=== PATIENT | female | born 1945 | race Caucasian/White ===

== ENCOUNTER 2020-01-11 08:59 | Outpatient (CLI) | payer MEDICARE, SELFPAY ==
[2020-01-11 09:15] LABS: Basophils Absolute Auto 0.06 K/mm3 (0.00-0.10); Basophils Percent Auto 1.2 % (0.0-1.0); Eosinophils Absolute Auto 0.13 K/mm3 (0.02-0.50); Eosinophils Percent Auto 2.6 % (1.0-6.0); Hematocrit 45.2 % (35.0-42.0); Immature Granulocyte Absolute 0.01 K/mm3 (0.00-0.00); Immature Granulocyte Percent A 0.2 % (0.0-0.0); Lymphocytes Absolute Auto 1.75 K/mm3 (1.10-4.50); Mean Corpuscular HGB Conc 33.2 g/dL (32.0-36.0); Mean Corpuscular Hemoglobin 32.5 pg (27.0-31.0); Mean Platelet Volume 9.6 fl (9.2-11.8); Monocytes Absolute Auto 0.64 K/mm3 (0.10-0.90); Monocytes Percent Auto 12.8 % (2.0-11.0); Neutrophils Absolute Auto 2.4 K/mm3 (1.7-7.2); Neutrophils Percent Auto 48.2 % (50.0-70.0); Platelet Count Result 157 K/mm3 (150-420); Red Blood Count 4.61 M/mm3 (4.20-5.40); Red Cell Distribution Width 13.1 % (11.6-14.4)
[2020-01-11 09:22] LABS: Add Urine Microscopic? NO; Appearance Urine Clear (Clear); Bilirubin Urine Negative (Negative); Blood Urine Negative (Negative); Color Urine Yellow (Yellow); Glucose Urine UA Negative (Negative); Ketones Urine Negative (Negative); Leukocyte Esterase Ur Negative (Negative); Nitrate Urine Negative (Negative); Protein Urine Negative (Negative); Specific Grav Ur 1.015 (1.010-1.020); Urobilinogen Urine 0.2 mg/dL (0.2-1.0)
[2020-01-11 10:10] LABS: Alanine Aminotransferase 35 U/L (14-59); Albumin Level 3.7 g/dL (3.4-5.0); Alkaline Phosphatase 76 U/L (46-116); Anion Gap 13.4 mmol/L (7-16); Aspartate Amino Transferase 29 U/L (15-37); Bilirubin,Total 0.3 mg/dL (0.00-1.00); Blood Urea Nitrogen 17 mg/dL (7-18); Calcium 9.3 mg/dL (8.5-10.1); Carbon Dioxide 29 mmol/L (21-32); Chloride 106 mmol/L (98-108); Cholesterol 204 mg/dL (0-200); Estimated Glomerular Filt Rate 57; Glucose 94 mg/dL (70-99); HDL Direct 79 mg/dL (40-60); LDL Cholesterol Calculated 100 mg/dL (<130); Osmolality Calculated 299 mOsm/kg (285-295); Potassium 4.4 mmol/L (3.5-5.1); Sodium 144 mmol/L (136-145); Thyroid Stimulating Hormone 1.53 uIU/mL (0.36-3.74); Total Protein 6.9 g/dL (6.4-8.2); Triglycerides 127 mg/dL (0-150)
== END 2020-01-11 09:00 | disposition home or self-care (01) ==
LOC: CHSLAB 09:05
PROVIDERS: PCP Internal Medicine; Visit Provider Internal Medicine
DX: E03.9 Hypothyroidism, unspecified (principal); R53.83 Other fatigue; E78.5 Hyperlipidemia, unspecified
CPT/HCPCS: 36415; 80053; 80061; 81003; 84443; 85025

== ENCOUNTER 2020-03-16 10:41 | Outpatient (CLI) | payer MEDICARE, SELFPAY ==
--- NOTE | ~2020-03-16 | MM_ITS ---
EXAMINATION: MM screening leo BI w casandra HISTORY: Screening TECHNIQUE: Craniocaudal and mediolateral oblique 3-D tomosynthesis images were obtained and synthetic 2-D images were generated. CAD analysis was submitted and interpreted. COMPARISON: Comparison to multiple prior studies sequentially, with oldest reviewed study dated 05/26. BREAST PARENCHYMAL COMPOSITION: There are scattered areas of fibroglandular density. FINDINGS: There is a new focal mass in the lower outer quadrant of the right breast. The left breast is stable without evidence for malignancy. There are benign bilateral breast calcifications. IMPRESSION: 1. New 5-6 mm mass lower outer quadrant of the right breast. 2. Additional mammographic views and possible breast ultrasound are recommended. BI-RADS Category 0: Incomplete: Needs additional imaging evaluation. Reviewed, dictated and finalized at location A. IMPRESSION: 1. New 5-6 mm mass lower outer quadrant of the right breast. 2. Additional mammographic views and possible breast ultrasound are recommended . BI-RADS Category 0: Incomplete: Needs additional imaging evaluation.
== END 2020-03-16 10:42 | disposition home or self-care (01) ==
LOC: CHSIMG 10:43
PROVIDERS: PCP Internal Medicine; Visit Provider Internal Medicine
DX: Z12.31 Encounter for screening mammogram for malignant neoplasm of breast (principal)
CPT/HCPCS: 77063; 77067

== ENCOUNTER 2020-03-21 09:43 | Outpatient (CLI) | payer MEDICARE, SELFPAY ==
--- NOTE | ~2020-03-21 | MMUS_ITS ---
EXAMINATION: MM diagnostic leo RT w casandra, US breast RT complete HISTORY: New 5-6 non or mass reported in the lower outer quadrant of the right breast TECHNIQUE: Additional 3-D tomosynthesis images of the right breast were performed and synthetic 2-D i mages were generated. CAD analysis was submitted and interpreted. High resolution complete right bri[address] st ultrasound was performed. COMPARISON: 03/16/2020 bilateral digital screening mammogram FINDINGS: MAMMOGRAPHIC FINDINGS: There is a circumscribed 5 mm opacity in the mid to lower outer right breast. There is heterogeneously dense stroma which may obscure masses. Multiple benign-appearing calcifications are present. ULTRASOUND: There are scattered circumscribed sonolucent lesions measuring up to 4.1 x 4.9 x 4.4 mm (6:00 4 cm fr om nipple). No suspicious mass or shadowing is detected. IMPRESSION: 1. No mammographic evidence of malignancy 2. Routine mammographic screening is recommended BI-RADS Category 2: Benign finding(s). Reviewed, dictated and finalized at location A. IMPRESSION: 1. No mammographic evidence of malignancy 2. Routine mammographic screening is recommended BI-RADS Category 2: Benign finding(s).
== END 2020-03-21 09:44 | disposition home or self-care (01) ==
LOC: CHSIMG 09:45
PROVIDERS: PCP Internal Medicine; Visit Provider Internal Medicine
DX: R92.8 Other abnormal and inconclusive findings on diagnostic imaging of breast (principal)
CPT/HCPCS: 76641; 77061; 77065; G0279

== ENCOUNTER 2020-12-01 12:01 | Outpatient (CLI) | payer MEDICARE, SELFPAY ==
--- NOTE | ~2020-12-01 | CT_ITS ---
EXAMINATION: CT brain wo con DATE: 12/01/2020 12:19 INDICATION: Memory loss. TECHNIQUE: Computed tomography (CT) of the head was performed without intravenous contrast. The mA wa s adjusted according to patient size. Iterative reconstruction technique was employed. The dose-lengt h product was 605.33 mGy-cm. COMPARISON: None FINDINGS: There are scattered areas of low attenuation in the cerebral white matter. There is no intr acranial hemorrhage, acute infarction, or abnormal intracranial mass lesion. The ventricles are sapphire l in size. There is mild mucosal thickening in the ethmoid sinuses. The mastoid air cells are normal. The orbits are normal. IMPRESSION: 1. Moderate nonspecific cerebral white matter disease, which likely represents chronic small vessel i schemic disease. Reviewed, dictated and finalized at location A. IMPRESSION: 1. Moderate nonspecific cerebral white matter disease, which likely represents chronic small vessel ischemic disease.
== END 2020-12-01 12:02 | disposition home or self-care (01) ==
LOC: CHSIMG 12:04
PROVIDERS: PCP Internal Medicine; Visit Provider Internal Medicine
DX: I63.9 Cerebral infarction, unspecified (principal)
CPT/HCPCS: 70450

== ENCOUNTER 2021-05-30 09:48 | Outpatient (RCR) | payer MEDICARE, SELFPAY ==
--- NOTE | 2021-05-30 12:44 | PTOPEVAL ---
Thank you for referring Prudence Watkins to [facility].? The patient is scheduled to be seen for therapy? ____x/week for ___ weeks. Please review, sign, date and return this plan of care ANTONIO. I agree with and certify that the following plan of care is medically necessary. Referring Physician Date Admitting Provider: Attending Provider: Watson Lopez MD Referring Provider: *PT Outpatient Evaluation Start: 05/30/21 09:49 Freq: Status: Active Protocol: Document 05/30/21 09:49 ACR (Rec: 05/30/21 11:00 ACR [id number]) Therapy Assessment Status Assessment Status Assessment Status Evaluation Evaluation Information Problem Diagnosis low back pain Onset 05/28/21 Subjective Information Patient states that she had Query Text:As Reported By Patient/ back surgery 2 years ago and Family everything was going well. A could weeks ago she woke up and her R leg felt like it would not move. She states it is in the front of the thigh and on the R lower back. She states that walking for a period of time, getting up from a chair, prolonged standing, and navigating steps are difficult for her. She states that she still does her exercises from her surgery. Patient states that she has had one fall in the past year where she fell to the R. Patient states that it is keeping her up at night. Prior Level of Function Activity Level (Last 3 Months) Occupation retired Hand Dominance Right Activity of Daily Living Ability Independent Indoor/Home Mobility Independent Community Mobility Independent Stairs Ability Independent Functional Cognition (Planning, Shopping Independent , Taking Medications) Cooking Yes Cleaning Yes Laundry Yes Shopping Yes Driving Yes Pain Assessment Timing of Pain Assessment Timing of Pain Assessment Assessment Pain Scale Pain Scale Used Numeric (1 - 10) Self Report Pain Assessment Right Thigh(s) Reported Pain Level 7 Greatest Pain Intensity 10 Right Lower Back Reported Pain Level 5 Greatest Pain Intensity
--- NOTE | 2021-06-13 11:11 | PTOPEVAL ---
Thank you for referring Prudence Watkins to [facility]. Please review, sign, date and return this plan of care ANTONIO. I agree with and certify that the following plan of care is medically necessary. Referring Physician Date Admitting Provider: Attending Provider: Watson Lopez MD Referring Provider: *PT Outpatient Evaluation Start: 05/30/21 09:49 Freq: Status: Active Protocol: Document 06/13/21 09:50 [email or web address] (Rec: 06/13/21 11:10 [email or web address]) Therapy Assessment Status Assessment Status Assessment Status Progress Evaluation Information Problem Diagnosis low back pain Onset 05/28/21 Subjective Information Pt. reports that her buttock Query Text:As Reported By Patient/ pain is better and less Family intense. She states that she still notices pain in the front of the right thigh and groin. she describes most pain with trying to lift the right thigh. Pain Assessment Timing of Pain Assessment Timing of Pain Assessment Pre-Treatment Pain Scale Pain Scale Used Numeric (1 - 10) Self Report Pain Assessment Right Thigh(s) Reported Pain Level 8 Right Lower Back Reported Pain Level 4 Pain Score Pain Score 8,4: Self Report Interventions Used Interventions Used By Clinicians Activity or ADL's,Exercise, Heat Cervical and Lumbar ROM Lumbar ROM Lumbar Flexion Active Ankle Query Text:Hands to: Lumbar Extension (0-40) 20 Query Text:Active in Degrees Lateral Rotation Right (0-45) 20 Query Text:Active in Degrees Lateral Rotation Left (0-45) 20 Query Text:Active in Degrees Lower Extremity Muscle Strength Testing Hip Strength Right Hip Flexion Strength 4- Good - Left Hip Flexion Strength 4+ Good + Knee Strength Right Knee Flexion Strength 4 Good Knee Extension Strength 4 Good Left Knee Flexion Strength 4+ Good + Knee Extension Strength 4+ Good + Palpation Assessment Palpation Palpation TTP continues to be noted at the right gluteal mm. into the greater trochanter. Special Tests-Lower Extremity Hip Special Tests SHAHZAD Positive Right FADIR Positive Right General Exercise General Exercises Exercise Description -dying bug x 2 minutes with 5 Query Text:Record Sets, Reps, second alternating holds Resistance, and Position -bridging alternating 5 second
== END 2021-06-20 14:54 | disposition home or self-care (01) ==
LOC: CHSPT 09:48
PROVIDERS: PCP Internal Medicine; Visit Provider Internal Medicine
DX: M47.817 Spondylosis without myelopathy or radiculopathy, lumbosacral region (principal); M54.16 Radiculopathy, lumbar region
CPT/HCPCS: 97110; 97140; 97161

== ENCOUNTER 2021-06-11 12:04 | Outpatient (CLI) | payer MEDICARE, SELFPAY ==
--- NOTE | ~2021-06-11 | XR_ITS ---
EXAMINATION: XR lumbar spine 2-3V DATE: 06/11/2021 12:50 INDICATION: Right hip pain TECHNIQUE: Anteroposterior and lateral views of the lumbar spine, and cone-down lateral view of the l umbosacral junction were obtained. COMPARISON: 02/09/2015 FINDINGS: Lumbar levoscoliosis is noted. There is severe loss of intervertebral disc space height fro m L2-3 through L4-5, worsened at L2-3 since the prior examination. The vertebral body heights and ali gnment are normal. There is no fracture. There is moderate multilevel facet osteoarthritis. IMPRESSION: 1. Severe lumbar spondylosis with slight worsening at L2-3. Reviewed, dictated and finalized at location A.
--- NOTE | ~2021-06-11 | XR_ITS ---
EXAMINATION: XR hip RT min 2V DATE: 06/11/2021 12:50 INDICATION: Right hip pain. TECHNIQUE: 2 views of right hip were obtained. COMPARISON: None. FINDINGS: Bone alignment is normal. No fracture. There is moderate right hip osteoarthritis. Osteitis pubis is noted. IMPRESSION: 1. Moderate right hip osteoarthritis. Reviewed, dictated and finalized at location A.
== END 2021-06-11 12:05 | disposition home or self-care (01) ==
LOC: CHSIMG 12:06
PROVIDERS: PCP Internal Medicine; Visit Provider Internal Medicine
DX: M25.551 Pain in right hip (principal); M47.816 Spondylosis without myelopathy or radiculopathy, lumbar region
CPT/HCPCS: 72100; 73502

== ENCOUNTER 2022-03-20 09:53 | Outpatient (CLI) | payer MEDICARE, SELFPAY ==
--- NOTE | ~2022-03-20 | US_ITS ---
EXAMINATION: US right upper quadrant DATE: 03/20/2022 10:47 INDICATION: Elevated liver function tests. TECHNIQUE: Multiple grayscale and Doppler ultrasound images of the abdomen were obtained. COMPARISON: 11/26/2018; CT, 06/15/2018 FINDINGS: Bowel gas obscures visualization of the pancreas. The visualized portions of the pancreas a re unremarkable. There is a stable 8 mm hyperechoic mass of the right hepatic lobe, consistent with a hemangioma. The liver is otherwise normal with normal echogenicity and echotexture. No surface nodul arity. Normal hepatopetal flow in the main portal vein. The gallbladder is surgically absent. The nor mal common bile duct measures 3 mm. IMPRESSION: 1. No sonographic correlate for the patient's symptoms. Reviewed, dictated and finalized at location B.
== END 2022-03-20 09:54 | disposition home or self-care (01) ==
LOC: CHSIMG 09:55
PROVIDERS: PCP Internal Medicine; Visit Provider Internal Medicine
DX: R94.5 Abnormal results of liver function studies (principal)
CPT/HCPCS: 76705

== ENCOUNTER 2022-05-01 15:09 | Outpatient (RCR) | payer MEDICARE, SELFPAY ==
--- NOTE | 2022-05-01 15:59 | PTOPEVAL1 ---
Evaluation Information Assessment Status Evaluation Diagnosis s/p R MAIKEL Onset 04/22/22 Subjective Information patient reports she has a R MAIKEL on 04/22/22. she reports she was having issues with her R hip for about 1 year prior to surgery. she reports prior to surgery she was uses a cane for ambulation. she reports she has 4 steps to get in the house at home. she reports she does have 1 step inside the house to get onto the porch. Reported Pain Level Pain Score 7: Self Report Assessment PT Clinical Summary mrs. miller presents to skilled PT services for evaluation and treatment following a R MAIKEL. she presents this date with pain, decreased rom, decreased strength, and abnormal gait mechanics. she would do well to attend and participate in skilled PT to improve her objective/functional deficits and progress towards a return to her prior level functional activity performance/ quality of life. Plan of Care Interventions Electrical Stimulation,Gait Training,Hot Pack/Cold Pack,Manual Therapy,Neuro Re-education,Patient/ Caregiver Educati,Therapeutic Activities, Therapeutic Exercise PT Services Indicated Yes Treatment Frequency and 3x weekly for 12 visits Duration These treatments will address the objective and functional deficits as defined above. The patient will be advanced safely and appropriately in order for the patient to progress towards his/her prior level of function. Additional exercises will be introduced and as well as a comprehensive home exercise program upon discharge, if needed, ?to ensure carryover of functional gains achieved in the clinic. This treatment plan has been reviewed and agreement upon by the patient.
--- NOTE | 2022-05-27 10:12 | PTOPPROG ---
Assessment and note entered by Deana Barth DPT Evaluation Information Assessment Status Progress Diagnosis s/p R MAIKEL Onset 04/22/2022 Subjective Information Pt reports that she returned from the hospital upstairs about a week ago. She is having pain on the outside of the knee. Pt reports that she has been moving better at home. She is using her FWW for mobility. Assessment PT Clinical Summary Pt presents to PT s/p R TKA on 04/22/2022. She transitioned to the swing bed program in the hospital and has now returned to outpatient PT. She still demonstrates R hip pain and demonstrates decreased strength, decreased mobility, and antalgic gait. She will benefit from additional skilled PT to further improve the aforementioned impairments, facilitate symptom relief, and return to functional and recreational activities. Plan of Care PT Services Indicated Yes These treatments will address the objective and functional deficits as defined above. The patient will be advanced safely and appropriately in order for the patient to progress towards his/her prior level of function. Additional exercises will be introduced and as well as a comprehensive home exercise program upon discharge, if needed, ?to ensure carryover of functional gains achieved in the clinic. This treatment plan has been reviewed and agreement upon by the patient.
--- NOTE | 2022-07-17 15:49 | BUPTOPEVAL1 ---
Assessment and note entered by JT File, PT Evaluation Information Assessment Status Re-evaluation Diagnosis s/p R MAIKEL Onset 04/22/22 Subjective Information patient reports she feels alright this date. she reports she continues to have pain in the R hip with prolonged standing and sitting. she reports she is no longer using her walker to ambulate. she reports she is doing her exercises daily at home. Reported Pain Level Pain Score 2: Self Report Assessment PT Clinical Summary mrs. miller presents to skilled PT services with continued weakness, pain, abnormal gait mechanics, and lack of achievement of goals for skilled PT. due to her continued deficits and history of setback post surgery, she presents as a more complex case requiring a longer return to function and more therapy. she would do well to continue skilled PT to continue to work on return to normal gait mechanics, pain free activities, and improved R hip strength. Plan of Care Interventions Gait Training,Neuro Re-education,Therapeutic Activities,Therapeutic Exercise,Self-Care/Home Management PT Services Indicated Yes Treatment Frequency and continue skilled PT 2x weekly for 6 more visits Duration These treatments will address the objective and functional deficits as defined above. The patient will be advanced safely and appropriately in order for the patient to progress towards his/her prior level of function. Additional exercises will be introduced and as well as a comprehensive home exercise program upon discharge, if needed, ?to ensure carryover of functional gains achieved in the clinic. This treatment plan has been reviewed and agreement upon by the patient.
--- NOTE | 2022-08-14 15:01 | PTOPDC ---
Assessment and note entered by Deana Barth DPT Evaluation Information Assessment Status Discharge Diagnosis s/p R MAIKEL Onset 04/22/22 Subjective Information Pt reports that she gets some sorenss in her hip but no pain. She has no complaints at this point. She notes that she does not have much difficulty with anything at home anymore. She has not been walking with a walker recently and has not felt like she needed to. Reported Pain Level Pain Score 0: Self Report Assessment PT Clinical Summary Pt presents to PT with significant improvements in strength, range of motion, and gait pattern since her last evaluation. While she still demonstrates a slight trendelenburg with increased fatigue, she was educated on the benefits of continuing her HEP and current activity level independently to further improve hip ABD strength and reduce lateral sway with ambulation. She is to be discharged from skilled PT to [facility] at this time and is to follow-up as needed regarding her POC should her functional status change. Plan of Care PT Services Indicated No
== END 2022-08-14 15:57 | disposition home or self-care (01) ==
LOC: CHSPT 15:09
PROVIDERS: Visit Provider Nurse Practitioner Family
DX: Z47.1 Aftercare following joint replacement surgery (principal); Z96.641 Presence of right artificial hip joint
CPT/HCPCS: 97110; 97112; 97116; 97140; 97161; 97530

== ENCOUNTER 2022-05-10 13:59 | Inpatient (IN) | payer MEDICARE, SELFPAY ==
[2022-05-10 14:15] VITALS: BP 124/65; PULSE 74; RESP 18; TEMP 36.2; O2SAT 99; BMI 26.2
--- NOTE | 2022-05-10 14:20 | ADMGEN ---
This patient, Prudence Watkins, was admitted to 2nd Floor Room 205-1 as a skilled swing bed due to right hip fracture. Patient/family oriented to hospital policies and general routines including ID bracelet, bed and alarms, visiting hours, pain management, procedures, bathroom and other care routines, personal items, smoking policy, room service/diet, and visiting hours. Information on how to activate the Rapid Response Team has been discussed. Patient/Family are encouraged to report perceived risks to care and to ask questions if they do not understand what they are told or what they should do.
[2022-05-10] MEDS: ASPIRIN 81 MG ENTERIC TABLET PO (16:44)
[2022-05-10] MEDS: oxyCODONE/ACETAMINOPHEN (*CRX) 5-325 MG TABLET 1 TABLET PO (16:44)
[2022-05-10] MEDS: IBUPROFEN 400 MG TABLET PO (18:52)
[2022-05-10] MEDS: traZODone HCL 50 MG TABLET PO (21:16)
[2022-05-10 23:56] VITALS: BP 129/50; PULSE 70; RESP 18; TEMP 36.3; O2SAT 98
[2022-05-11] MEDS: LEVOTHYROXINE SODIUM 50 MCG TABLET PO (05:51)
[2022-05-11 08:00] VITALS: BP 145/78; PULSE 91; RESP 14; TEMP 36.4; O2SAT 98
--- NOTE | 2022-05-11 08:07 | PC.NURSE ---
Discussed taking medication prior to PT to help[ control pain before became stronger.
--- NOTE | 2022-05-11 08:09 | PM.IMHP ---
H&P: HPI History of Present Illness Date/Time: 05/11/22 08:09 Chief Complaint: Rehab, Hip pain , Closed Nondisplaced fracture of trochanter of right femur Narrative: This is a 76-year-old female that is 1 week postop of a right hip arthroplasty while at home she felt a sharp pain in her hip when she was in the kitchen. Patient was unable to ambulate due to pain and pressure was taken by ambulance to the emergency room was found to have a nondisplaced greater trochanter fracture. Patient has a past medical history of arthritis, bladder disorder, depression, GERD, hypothyroidism, pacemaker, and osteoarthritis. Patient presents as a swing patient where she will be seen with physical therapy occupational therapy and we will continue to monitor and control pain while she is here. Review of outlying facilities labs nothing significant we will monitor labs in the upcoming few days on the 16 patient WBCs was 6.7, hemoglobin 10.9, [place] 34.3, platelets 255, sodium 139, potassium 4.2, glucose 89, BUN 21, creatinine 0.29 at this time patient stable for inpatient swing. Review of Systems Review of Systems: right hip pain All systems reviewed & are unremarkable except as noted in HPI and below PMFSH Past Medical History Medical History (Updated 05/11/22 @ 08:26 by Kenyatta Cassidy NP) Foot drop, left GERD (gastroesophageal reflux disease) Hypothyroid Lumbar back pain with radiculopathy affecting left lower extremity Pacemaker Family History Family History Father Heart disease Grandparent Heart disease Other Diabetes mellitus Family history of arthritis Family history of malignant neoplasm Social History Social History Smoking packs per day: 0.5 Smoking cigarettes per day: 10.0 Years smoked: 25 Smoking pack-years: 12.50 Smoking status: Current every day smoker Tobacco type: cigarettes Smoking end date: 08/25/12 Alcohol intake: never Substance use: never Substance use type: does not use Spiritual care concerns: No Meds Home Medications and Allergies Home Medications Medication Instructions Recorded Confirmed Type esomeprazole magnesium 40 mg 40 mg PO DAILY 01/17/21 05/10/22 History capsule,delayed release levothyroxine 50 mcg capsule 50 mcg PO DAILY 01/17/21 05/10/22 History (Tirosint) multivitamin 1 tablet PO DAILY 01/17/21 05/10/22 History oxybutynin chloride 5 mg tablet 5 mg PO DAILY PRN Uterine 01/17/21 05/10/22 History Contractility/Contractions venlafaxine 75 mg capsule,extended 75 mg PO DAILY 01/17/21 05/10/22 History release 24 hr aspirin 81 mg tablet,delayed 81 mg PO BID 05/10/22 05/10/22 History release calcium carbonate 500 mg calcium 500 mg PO DAILY 05/10/22 05/10/22 History (1,250 mg) chewable tablet cholecalciferol (vitamin D3) 50 2,000 unit PO DAILY 05/10/22 05/10/22 History mcg (2,000 unit) tablet cyanocobalamin (vitamin B-12) 2,000 mcg PO DAILY 05/10/22 05/10/22 History 1,000 mcg tablet (Vitamin B-12) glucosamine sulfate 500 mg tablet 500 mg PO DAILY 05/10/22 05/10/22 History (Glucosamine) oxycodone-acetaminophen 5 mg-325 1 tablet PO Q4H PRN Pain 05/10/22 05/10/22 History mg tablet (Percocet) Allergies Allergy/AdvReac Type Severity Reaction Status Date / Time Sulfa (Sulfonamide Allergy Mild Unknown Verified 02/19/21 11:00 Antibiotics) Vital Signs Vital Signs - 24 hr 05/10/22 14:15 05/10/22 23:56 Temperature 97.2 F L 97.4 F L Pulse Rate 74 70 Respiratory Rate 18 18 Blood Pressure 124/65 129/50 L Pulse Oximetry 99 98 Oxygen Delivery Room Air Room Air Exam Narrative: GENERAL:Well-appearing, well-nourished, and in no acute distress. HEAD:Normocephalic, atraumatic. EYES: PERRLA and EOMI. ENT: Nares clear, no rhinorrhea or epistaxis. Mucous membranes moist. CHEST: Clear to auscultation. No
[2022-05-11] MEDS: CYANOCOBALAMIN 1,000 MCG TABLET 2000 MCG PO (08:42)
[2022-05-11] MEDS: ASPIRIN 81 MG ENTERIC TABLET PO ×2 (08:42→16:17)
[2022-05-11] MEDS: CHOLECALCIFEROL 1,000 UNITS TABLET 2000 UNITS PO (08:42)
[2022-05-11] MEDS: VENLAFAXINE HCL XR 75 MG CAP.ER.24H PO (08:43)
[2022-05-11] MEDS: MULTIVITAMINS THERAPEUTIC TAB (*BKC) 1 TABLET PO (08:43)
[2022-05-11] MEDS: PANTOPRAZOLE 40 MG TABLET PO (08:44)
[2022-05-11] MEDS: IBUPROFEN 400 MG TABLET PO (08:44)
[2022-05-11] MEDS: CALCIUM CARBONATE (TUMS) 500 MG (200 MG ELEMENTAL) PO (11:20)
[2022-05-11] MEDS: ACETAMINOPHEN 325 MG TABLET 650 MG PO (14:14)
[2022-05-11 16:00] VITALS: BP 109/68; PULSE 83; RESP 14; TEMP 36.5; O2SAT 98
[2022-05-12] VITALS: BP 141/66; PULSE 62; RESP 18; TEMP 35.9; O2SAT 96
[2022-05-12] MEDS: LEVOTHYROXINE SODIUM 50 MCG TABLET PO (06:05)
[2022-05-12 08:00] VITALS: BP 139/72; PULSE 101; RESP 16; TEMP 36.4; O2SAT 96
[2022-05-12] MEDS: ACETAMINOPHEN 325 MG TABLET 650 MG PO ×2 (08:45→16:04)
[2022-05-12] MEDS: ASPIRIN 81 MG ENTERIC TABLET PO ×2 (09:17→16:04)
[2022-05-12] MEDS: CYANOCOBALAMIN 1,000 MCG TABLET 2000 MCG PO (09:17)
[2022-05-12] MEDS: VENLAFAXINE HCL XR 75 MG CAP.ER.24H PO (09:17)
[2022-05-12] MEDS: MULTIVITAMINS THERAPEUTIC TAB (*BKC) 1 TABLET PO (09:18)
[2022-05-12] MEDS: PANTOPRAZOLE 40 MG TABLET PO (09:18)
[2022-05-12] MEDS: CHOLECALCIFEROL 1,000 UNITS TABLET 2000 UNITS PO (09:18)
[2022-05-12] MEDS: CALCIUM CARBONATE (TUMS) 500 MG (200 MG ELEMENTAL) PO (11:10)
[2022-05-12 16:00] VITALS: BP 137/72; PULSE 96; RESP 16; TEMP 36.4; O2SAT 96
[2022-05-12] MEDS: IBUPROFEN 400 MG TABLET PO (20:17)
[2022-05-13] VITALS: BP 123/48; PULSE 78; RESP 18; TEMP 35.9; O2SAT 97
[2022-05-13 05:19] LABS: Hematocrit 32.7 % (35.0-42.0); Hemoglobin 10.8 g/dL (11.7-13.8); Mean Corpuscular Hemoglobin 33.1 pg (27.0-31.0); Mean Corpuscular Volume 100.3 fL (78.0-102.0); Mean Platelet Volume 9.3 fl (9.2-11.8); Platelet Count Result 232 K/mm3 (150-420); Red Blood Count 3.26 M/mm3 (4.20-5.40); Red Cell Distribution Width 14.3 % (11.6-14.4); White Blood Count 4.4 K/mm3 (4.8-10.8)
[2022-05-13 05:31] LABS: Anion Gap 5 mmol/L (8-16); Blood Urea Nitrogen 23 mg/dL (7-18); Calcium 8.8 mg/dL (8.5-10.1); Carbon Dioxide 27 mmol/L (21-32); Chloride 106 mmol/L (98-108); Estimated CRCL calculation 38 ml/min; Estimated Glomerular Filt Rate 52; Glucose 88 mg/dL (70-99); Osmolality Calculated 288 mOsm/kg (285-295); Potassium 3.6 mmol/L (3.5-5.1); Sodium 138 mmol/L (136-145)
[2022-05-13] MEDS: LEVOTHYROXINE SODIUM 50 MCG TABLET PO (05:59)
[2022-05-13 07:46] VITALS: BP 144/86; PULSE 81; RESP 16; TEMP 35.9; O2SAT 98
[2022-05-13] MEDS: VENLAFAXINE HCL XR 75 MG CAP.ER.24H PO (08:42)
[2022-05-13] MEDS: PANTOPRAZOLE 40 MG TABLET PO (08:42)
[2022-05-13] MEDS: CYANOCOBALAMIN 1,000 MCG TABLET 2000 MCG PO (08:42)
[2022-05-13] MEDS: ACETAMINOPHEN 325 MG TABLET 650 MG PO (08:42)
[2022-05-13] MEDS: CHOLECALCIFEROL 1,000 UNITS TABLET 2000 UNITS PO (08:42)
[2022-05-13] MEDS: MULTIVITAMINS THERAPEUTIC TAB (*BKC) 1 TABLET PO (08:42)
[2022-05-13] MEDS: ASPIRIN 81 MG ENTERIC TABLET PO ×2 (08:42→16:35)
[2022-05-13] MEDS: CALCIUM CARBONATE (TUMS) 500 MG (200 MG ELEMENTAL) PO (11:17)
[2022-05-13 16:00] VITALS: BP 142/59; PULSE 81; RESP 16; TEMP 36.4; O2SAT 98
[2022-05-13] MEDS: IBUPROFEN 400 MG TABLET PO (16:35)
[2022-05-13] MEDS: traZODone HCL 50 MG TABLET PO (21:03)
[2022-05-13] MEDS: oxyCODONE/ACETAMINOPHEN (*CRX) 5-325 MG TABLET 1 TABLET PO (21:06)
[2022-05-14] VITALS: BP 160/52; PULSE 72; RESP 16; TEMP 36.6; O2SAT 98
[2022-05-14] MEDS: LEVOTHYROXINE SODIUM 50 MCG TABLET PO (06:32)
[2022-05-14 08:00] VITALS: BP 131/69; PULSE 70; RESP 16; TEMP 36.4; O2SAT 99
[2022-05-14] MEDS: PANTOPRAZOLE 40 MG TABLET PO (08:44)
[2022-05-14] MEDS: CHOLECALCIFEROL 1,000 UNITS TABLET 2000 UNITS PO (08:44)
[2022-05-14] MEDS: CYANOCOBALAMIN 1,000 MCG TABLET 2000 MCG PO (08:45)
[2022-05-14] MEDS: VENLAFAXINE HCL XR 75 MG CAP.ER.24H PO (08:45)
[2022-05-14] MEDS: ASPIRIN 81 MG ENTERIC TABLET PO ×2 (08:45→16:58)
[2022-05-14] MEDS: oxyCODONE/ACETAMINOPHEN (*CRX) 5-325 MG TABLET 1 TABLET PO (08:45)
[2022-05-14] MEDS: MULTIVITAMINS THERAPEUTIC TAB (*BKC) 1 TABLET PO (08:46)
[2022-05-14] MEDS: CALCIUM CARBONATE (TUMS) 500 MG (200 MG ELEMENTAL) PO (11:16)
[2022-05-14 16:00] VITALS: BP 137/60; PULSE 81; RESP 17; TEMP 36.3; O2SAT 96
--- NOTE | 2022-05-14 18:25 | PC.NURSE ---
Charting completed by Linda Nixon, student nurse under this nurses supervision. All charting has been reviewed and agreed with for this shift.
[2022-05-14] MEDS: MENTHOL 10% / METHYL SALICYLATE 15% 57 GM TUBE 1 APPLIC TOPICAL (21:46)
[2022-05-15] VITALS: BP 150/59; PULSE 74; RESP 18; TEMP 36.3; O2SAT 96
[2022-05-15] MEDS: LEVOTHYROXINE SODIUM 50 MCG TABLET PO (05:30)
[2022-05-15 08:00] VITALS: BP 114/91; PULSE 95; RESP 18; TEMP 35.5; O2SAT 98
[2022-05-15] MEDS: CHOLECALCIFEROL 1,000 UNITS TABLET 2000 UNITS PO (08:47)
[2022-05-15] MEDS: VENLAFAXINE HCL XR 75 MG CAP.ER.24H PO (08:48)
[2022-05-15] MEDS: PANTOPRAZOLE 40 MG TABLET PO (08:48)
[2022-05-15] MEDS: MULTIVITAMINS THERAPEUTIC TAB (*BKC) 1 TABLET PO (08:48)
[2022-05-15] MEDS: oxyCODONE/ACETAMINOPHEN (*CRX) 5-325 MG TABLET 1 TABLET PO (08:48)
[2022-05-15] MEDS: ASPIRIN 81 MG ENTERIC TABLET PO ×2 (08:48→16:13)
[2022-05-15] MEDS: CYANOCOBALAMIN 1,000 MCG TABLET 2000 MCG PO (08:48)
--- NOTE | 2022-05-15 10:41 | PM.EVENT ---
Event Note Event Note Event Note: Patient notes that her pain is controlled, she slept well overnight and she is tolerating her meals.
[2022-05-15] MEDS: CALCIUM CARBONATE (TUMS) 500 MG (200 MG ELEMENTAL) PO (11:45)
[2022-05-15 16:00] VITALS: BP 108/84; PULSE 94; RESP 18; TEMP 36.1; O2SAT 98
[2022-05-15] MEDS: HYDROcodone/acetaminophen (*CRX) 5-325 MG TABLET 1 TAB PO (16:13)
[2022-05-15] MEDS: MENTHOL 10% / METHYL SALICYLATE 15% 57 GM TUBE 1 APPLIC TOPICAL (20:19)
[2022-05-16] VITALS: BP 144/67; PULSE 96; RESP 18; TEMP 36.2; O2SAT 97
[2022-05-16] MEDS: LEVOTHYROXINE SODIUM 50 MCG TABLET PO (06:04)
[2022-05-16 08:00] VITALS: BP 138/59; PULSE 79; RESP 16; TEMP 36.4; O2SAT 94
[2022-05-16] MEDS: CYANOCOBALAMIN 1,000 MCG TABLET 2000 MCG PO (08:32)
[2022-05-16] MEDS: VENLAFAXINE HCL XR 75 MG CAP.ER.24H PO (08:33)
[2022-05-16] MEDS: PANTOPRAZOLE 40 MG TABLET PO (08:33)
[2022-05-16] MEDS: ASPIRIN 81 MG ENTERIC TABLET PO ×2 (08:33→16:49)
[2022-05-16] MEDS: IBUPROFEN 400 MG TABLET PO ×2 (08:34→21:11)
[2022-05-16] MEDS: CHOLECALCIFEROL 1,000 UNITS TABLET 2000 UNITS PO (08:34)
[2022-05-16] MEDS: MULTIVITAMINS THERAPEUTIC TAB (*BKC) 1 TABLET PO (08:34)
[2022-05-16] MEDS: MENTHOL 10% / METHYL SALICYLATE 15% 57 GM TUBE 1 APPLIC TOPICAL ×2 (09:28→21:11)
[2022-05-16] MEDS: CALCIUM CARBONATE (TUMS) 500 MG (200 MG ELEMENTAL) PO (11:28)
[2022-05-16 15:40] VITALS: BP 106/69; PULSE 81; RESP 14; TEMP 36.1; O2SAT 98
[2022-05-16 19:41] VITALS: PULSE 81; RESP 14; O2SAT 98
[2022-05-16] MEDS: traZODone HCL 50 MG TABLET PO (21:11)
[2022-05-17] VITALS: BP 124/51; PULSE 72; RESP 16; TEMP 36.4; O2SAT 96
[2022-05-17] MEDS: LEVOTHYROXINE SODIUM 50 MCG TABLET PO (05:50)
[2022-05-17 07:45] VITALS: BP 110/63; PULSE 89; RESP 18; TEMP 36.1; O2SAT 97
--- NOTE | 2022-05-17 07:45 | PM.DS ---
DS: Admitting Diagnosis Discharge Date 05/17/2022 Admitting Diagnosis Rehab/weakness s/p right total hip arthroplasty DS: Discharge Diagnosis Discharge Diagnosis (1) Fracture of hip, right, closed: Code(s): S72.001A - Fracture of unspecified part of neck of right femur, initial encounter for closed fracture Status: Acute Assessment and Plan: s/p right total hip arthroplasty Follow up with Dr Lobo as schedule PT/evaluate and treat walker use fall precaution pain control (2) Pain: Code(s): R52 - Pain, unspecified Status: Acute Assessment and Plan: Controlled Will discharge home with Percocet has not used this admission (3) Depression: Code(s): F32.A - Depression, unspecified Status: Acute Assessment and Plan: Continue home medication (4) Hypothyroid: Code(s): E03.9 - Hypothyroidism, unspecified Status: Acute Assessment and Plan: Stable continue home medication (5) Nasal septal perforation: Code(s): J34.89 - Other specified disorders of nose and nasal sinuses Status: Acute Plan We will give Protonix for GERD Low dose aSa daily DS: Summary Hospital Course Reason for hospitalization: Rehab/weakness s/p right total hip arthroplasty Hospital Course: This is a 76-year-old female that is s/p right hip arthroplasty while at home she felt a sharp pain in her hip when she was in the kitchen.? Patient was unable to ambulate due to pain and pressure was taken by ambulance to the emergency room was found to have a nondisplaced greater trochanter fracture.? Patient has a past medical history of arthritis, bladder disorder, depression, GERD, hypothyroidism, pacemaker, and osteoarthritis.? Patient presents as a swing patient where she will be seen with physical therapy occupational therapy and we will continue to monitor and control pain while she is here. This day of discharge patient pain is controlled she is ambulating 300 feet with four-wheel walker and standby assist. Discharge instructions reviewed with patient, as well as provided in writing per nursing staff. The instructions also include specific and strict return/GO TO THE ER as well as f/u information. All questions have been answered, and the patient and/or family deny any further questions with discharge and discharge plan. The patient denies SOB, CP, palpitation, extremity numbness, lightheadedness, dizziness, constipation, diarrhea, chills, or fever. Time Spent with Patient Time attestation: Total time spent providing and/or coordinating discharge services: Exam Narrative: GENERAL:Well-appearing, well-nourished, and in no acute distress. HEAD:Normocephalic, atraumatic. EYES: PERRLA and EOMI. ENT: Nares clear, no rhinorrhea or epistaxis. Mucous membranes moist. CHEST: Clear to auscultation. No respiratory distress. HEART: Regular rate and rhythm. Normal peripheral pulses. ABDOMEN: Soft, nontender, nondistended, normal active bowel sounds. EXTREMITIES: Normal range of motion. No edema. SKIN: Warm, dry, no rash. left chest wall scar from pacemaker NEURO: No focal deficits. Alert and oriented x3. Discharge Plan Discharge Attending physician on discharge: Luisito Haney Discharging Clinician: Melinda Kapoor Anticipated Discharge Date/Time: 05/17/22 07:37 Patient Disposition: Home, Self-Care Activity: as tolerated Diet: regular Discharge Instructions: 1. Follow up with your provider within 1-2 weeks 2. Take prescription medication as ordered Notify your provider of any signs and symptoms of infection: Fever Foul Odor Discharge Heat at the Site: Increase in Pain: Pus Redness and Swelling Follow-up with orthopedic surgeon as ordered Patient Instructions: Antibiotic Form, Venlafaxine (By mouth), Fall Prevention for Older Adults (DC), Hip Pain (GEN) Stand Alone Forms: General Discharge Information Follow-up/R
[2022-05-17] MEDS: VENLAFAXINE HCL XR 75 MG CAP.ER.24H PO (08:20)
[2022-05-17] MEDS: CYANOCOBALAMIN 1,000 MCG TABLET 2000 MCG PO (08:21)
[2022-05-17] MEDS: MULTIVITAMINS THERAPEUTIC TAB (*BKC) 1 TABLET PO (08:21)
[2022-05-17] MEDS: CHOLECALCIFEROL 1,000 UNITS TABLET 2000 UNITS PO (08:21)
[2022-05-17] MEDS: ASPIRIN 81 MG ENTERIC TABLET PO (08:21)
[2022-05-17] MEDS: PANTOPRAZOLE 40 MG TABLET PO (08:21)
--- NOTE | 2022-05-17 09:05 | PC.NURSE ---
Patient discharging home. All discharge instructions and education reviewed with patient. Patient states understanding. All belongings gathered together and sent home with patient. This nurse accompanied patient to front door via wheelchair, left via private vehicle with . No questions at discharge.
--- NOTE | 2022-05-22 14:35 | PC.NURSE ---
Pt states she received and understood her discharge instructions. Pt also states it was great. Everyone was so good and nice. I couldn't have asked for anything better.
== END 2022-05-17 09:05 | disposition home or self-care (01) | DRG 561 ==
PROVIDERS: Nurse Practitioner Family; Admitting Provider Internal Medicine; PCP Internal Medicine; Visit Provider Internal Medicine
DX: S72.114D Nondisplaced fracture of greater trochanter of right femur, subsequent encounter for closed fracture with routine healing (principal); K21.9 Gastro-esophageal reflux disease without esophagitis; E03.9 Hypothyroidism, unspecified; M19.90 Unspecified osteoarthritis, unspecified site; M21.372 Foot drop, left foot; F17.210 Nicotine dependence, cigarettes, uncomplicated; F32.A Depression, unspecified; Z95.0 Presence of cardiac pacemaker
CPT/HCPCS: 36415; 80048; 85027; 97110; 97161; 97165; 97530; 97535; A9270

== ENCOUNTER 2022-05-30 12:51 | Outpatient (CLI) | payer MEDICARE, SELFPAY ==
--- NOTE | ~2022-05-30 | DEXA_ITS ---
Bone Density Report Name: LEN YANG Age: 76 Sex: Female Ethnicity: White Date of : 1945 Indication: postmenopausal; screening for osteoporosis; height loss; prior fracture; Referring Provider: Watson Lopez Study: Bone densitometry was performed. Exam Date: May 30, 2022 Accession number: [id number] Bone Density: Region BMD T-score Z-score Classification Femoral Neck (Left) 0.712 -1.2 0.8 Osteopenia Total Hip (Left) 0.716 -1.8 -0.1 Osteopenia World Health Organization criteria for BMD impression classify patients as: Normal (T-score at or above -1.0), Osteopenia (T-score between -1.0 and -2.5), or Osteoporosis (T-score at or below -2.5). 10-year Fracture Risk: FRAX not reported because: Prior hip or vertebral fracture Clinical Information Provided by Patient: Have had a previous hip or vertebral fracture Has had a low trauma fracture Smokes Has used the following medications: Vitamin D, Calcium, multi vit Patient maximum height was 65 Menopause Age: 44 No regular weight bearing exercise Drinks caffeinated beverages Onset of menses at age 13 Number of children 0 Impression: The patient has low bone mass, based on the Left Total Hip T-score. The patient has risk factors, including: smoking, previous fracture. Discussion: INCREASED RISK OF FRACTURE DUE TO HISTORY OF FRACTURE. The patient's previous fracture puts the patient at high risk of a future fracture. In untreated patients, the risk of osteoporotic fracture increases approximately two-fold for each 1.0 SD decrease in T-score. Low bone density is not the only risk factor for fracture; also consider factors such as patient's age, frailty or poor health, risk of falling, risk of injury, previous osteoporotic fracture, family history of osteoporosis, cigarette smoking, low body weight, etc. Not everyone with a low trauma fracture has osteoporosis; osteomalacia and other metabolic bone disorders should also be considered. Patients who have osteoporosis should be evaluated for specific diseases and conditions (secondary causes) that may cause or contribute to bone loss and fracture risk. National Osteoporosis Foundation (NOF) recommends pharmacologic intervention for patients with a prior hip or vertebral fracture regardless of BMD T-score. The patient should follow a healthful lifestyle (good nutrition with adequate calcium and vitamin D, and appropriate weight-bearing exercise). Follow-Up: Consider a repeat BMD and Vertebral Fracture Assessment (VFA) exam in 2 years or sooner if medically necessary, to reassess this patient's status. Reported by: Dr. Benoit Birmingham on 05/30/2022 1:21:00 PM. Reviewed, dictated and finalized at location AOdalis SCHMIDT
== END 2022-05-30 12:52 | disposition home or self-care (01) ==
LOC: CHSIMG 12:54
PROVIDERS: PCP Internal Medicine; Visit Provider Internal Medicine
DX: M81.0 Age-related osteoporosis without current pathological fracture (principal)
CPT/HCPCS: 77080

== ENCOUNTER 2022-07-01 09:14 | Outpatient (CLI) | payer MEDICARE, SELFPAY ==
--- NOTE | ~2022-07-01 | XR_ITS ---
EXAMINATION: XR hip RT min 3V w AP pelvis INDICATION: Right hip pain TECHNIQUE: AP view of the pelvis and three views of the right hip are obtained. COMPARISON: 06/11/2021 FINDINGS: There are changes of interval right hip hemiarthroplasty. The greater trochanter of the rig ht femur exists as a separate fragment. Osteitis pubis is noted. There is moderate osteoarthritis of the left hip. Moderate to severe spondylosis is noted in the lower lumbar spine. IMPRESSION: 1. Changes of interval right hip hemiarthroplasty with the greater trochanter of the right femur iden tified as a separate osseous fragment. Reviewed, dictated and finalized at location B. OGRAPHIC TECHNOLOGIST IMPRESSION: 1. Changes of interval right hip hemiarthroplasty with the greater trochanter o f the right femur identified as a separate osseous fragment.
== END 2022-07-01 09:15 | disposition home or self-care (01) ==
LOC: CHSIMG 09:17
PROVIDERS: PCP Internal Medicine; Visit Provider Orthopaedic Surgery
DX: M25.551 Pain in right hip (principal)
CPT/HCPCS: 73502

== ENCOUNTER 2022-08-12 07:40 | Outpatient (CLI) | payer MEDICARE, SELFPAY ==
--- NOTE | ~2022-08-12 | XR_ITS ---
AP and lateral views of the right hip Clinical history: Pain COMPARISON: 07/01/2022 Findings: Right hip arthroplasty hardware is unchanged. Large greater trochanteric fragment is unchan ged at the right hip joint region. Soft tissues are unremarkable. Impression: No significant interval change. Stable right hip arthroplasty hardware. Stable large right greater trochanteric osseous fragment. Reviewed, dictated and finalized at location [] [employer]ATE PROFESSOR PLANT PATHOLOGY Impression: No significant interval change. Stable right hip arthroplasty hardware. Stable large right greater trochanteric osseous fragment.
== END 2022-08-12 07:41 | disposition home or self-care (01) ==
LOC: CHSIMG 07:44
PROVIDERS: PCP Internal Medicine; Visit Provider Orthopaedic Surgery
DX: M25.551 Pain in right hip (principal); Z96.641 Presence of right artificial hip joint
CPT/HCPCS: 73502

== ENCOUNTER 2022-09-20 09:44 | Outpatient (CLI) | payer MEDICARE, SELFPAY ==
--- NOTE | ~2022-09-20 | CT_ITS ---
CT head without contrast Indication: Cognitive impairment COMPARISON: 12/01/2020 Technique: Serial scans were obtained through the brain without the administration of contrast. Dose reduction technique was used on this scan by utilizing automated exposure control and iterative recon struction technique. The dose-length product (DLP) was 605.33 mGy-cm. Findings: There is no evidence of intracranial hemorrhage, mass lesion, or acute infarct. The ventri cles and subarachnoid spaces are unremarkable. Low attenuation regions are seen within the periventr icular white matter bilaterally, likely representing changes from chronic microvascular ischemic dise ase. There is no evidence of edema, mass effect or midline shift. The visualized paranasal sinuses and mastoid air cells are clear. Impression: No intracranial hemorrhage, mass, or acute infarct. Mild chronic white matter changes, as above. Reviewed, dictated and finalized at location M. TESTER Impression: No intracranial hemorrhage, mass, or acute infarct. Mild chronic white matter changes, as above.
[2022-09-20 10:01] LABS: Basophils Absolute Auto 0.07 K/mm3 (0.00-0.10); Basophils Percent Auto 1.3 % (0.0-1.0); Eosinophils Absolute Auto 0.03 K/mm3 (0.02-0.50); Eosinophils Percent Auto 0.6 % (1.0-6.0); Hematocrit 43.8 % (35.0-42.0); Immature Granulocyte Absolute 0.02 K/mm3 (0.00-0.00); Immature Granulocyte Percent A 0.4 % (0.0-0.0); Lymphocytes Absolute Auto 1.25 K/mm3 (1.10-4.50); Lymphocytes Percent Auto 23.3 % (18.0-42.0); Mean Corpuscular Hemoglobin 30.6 pg (27.0-31.0); Mean Corpuscular Volume 95.8 fL (78.0-102.0); Mean Platelet Volume 9.7 fl (9.2-11.8); Monocytes Absolute Auto 0.75 K/mm3 (0.10-0.90); Neutrophils Absolute Auto 3.3 K/mm3 (1.7-7.2); Neutrophils Percent Auto 60.4 % (50.0-70.0); Platelet Count Result 169 K/mm3 (150-420); Red Blood Count 4.57 M/mm3 (4.20-5.40); White Blood Count 5.4 K/mm3 (4.8-10.8)
[2022-09-20 10:07] LABS: Add Urine Microscopic? NO; Appearance Urine Clear (Clear); Bilirubin Urine Negative (Negative); Blood Urine Negative (Negative); Color Urine Light Yellow (Yellow); Glucose Urine UA Negative (Negative); Ketones Urine Negative (Negative); Leukocyte Esterase Ur Negative LEU/UL (Negative); Nitrate Urine Negative (Negative); Protein Urine Negative (Negative); Specific Grav Ur 1.015 (1.010-1.020); Urobilinogen Urine 0.2 mg/dL (0.2-1.0); pH Urine 6.5 (5.0-8.0)
[2022-09-20 10:40] LABS: Alanine Aminotransferase 23 U/L (14-59); Albumin Level 3.5 g/dL (3.4-5.0); Alkaline Phosphatase 130 U/L (46-116); Anion Gap 8 mmol/L (8-16); Aspartate Amino Transferase 31 U/L (15-37); Bilirubin,Total 0.4 mg/dL (0.00-1.00); Blood Urea Nitrogen 22 mg/dL (7-18); Calcium 9.1 mg/dL (8.5-10.1); Carbon Dioxide 31 mmol/L (21-32); Chloride 106 mmol/L (98-108); Estimated Glomerular Filt Rate 55; Glucose 100 mg/dL (70-99); Osmolality Calculated 303 mOsm/kg (285-295); Sodium 145 mmol/L (136-145); Thyroid Stimulating Hormone 0.39 uIU/mL (0.36-3.74); Total Protein 6.8 g/dL (6.4-8.2)
[2022-09-23 10:35] LABS: Methylmalonic Acid 240 nmol/L (87-318)
[2022-09-25 04:17] LABS: Red Blood Cell Folate 578 ng/mL RBC (>280)
== END 2022-09-20 09:45 | disposition home or self-care (01) ==
PROVIDERS: PCP Internal Medicine; Visit Provider Internal Medicine
DX: G31.84 Mild cognitive impairment of uncertain or unknown etiology (principal); E53.8 Deficiency of other specified B group vitamins; E56.8 Deficiency of other vitamins
CPT/HCPCS: 36415; 70450; 80053; 81003; 82747; 83921; 84443; 85025

== ENCOUNTER 2022-10-21 08:01 | Outpatient (CLI) | payer MEDICARE, SELFPAY ==
--- NOTE | ~2022-10-21 | XR_ITS ---
XR hip RT min 2V 10/21/2022 08:28 Indication: Follow-up right hip. Intermittent pain. Procedure: 2 views right hip Comparison: Comparison to multiple prior studies sequentially, with oldest reviewed study dated 02/2022. Findings: Right total hip arthroplasty well seated. Persistent unchanged displacement of the right gr eater trochanter fracture fragment. No new fracture or traumatic malalignment. No significant soft ti ssue abnormality. No foreign bodies. Impression: 1: No acute bone or joint abnormality. No significant interval change. Reviewed, dictated and finalized at location B. COPY WRITER Impression: 1: No acute bone or joint abnormality. No significant interval change.
== END 2022-10-21 08:02 | disposition home or self-care (01) ==
LOC: CHSIMG 08:04
PROVIDERS: PCP Internal Medicine; Visit Provider Orthopaedic Surgery
DX: Z96.641 Presence of right artificial hip joint (principal)
CPT/HCPCS: 73502

== ENCOUNTER 2023-03-27 10:03 | Emergency (ER) | payer MEDICARE, SELFPAY ==
--- NOTE | ~2023-03-27 | XR_ITS ---
EXAMINATION: XR hip RT min 2V, XR femur RT min 2V DATE: 03/27/2023 11:13 INDICATION: Right hip and femoral pain. TECHNIQUE: 1. Anteroposterior and frog leg lateral views of the right hip were obtained. 2. AP and lateral views of the right femur were obtained on overlapping proximal and distal images. COMPARISON: 10/21/[address] abdomen and pelvis dated 02/13/2015 FINDINGS: Noncemented right total hip arthroplasty which is in near-anatomic alignment. Unchanged 1.7 cm proxim al distraction of. A chronic avulsion fracture of the greater trochanter. No acute fractures identifi ed. No periprosthetic lucency to suggest loosening or infection. Right knee joint space appears relat ively preserved on nonweightbearing imaging. No right knee joint effusion. Couple small sclerotic chr onic bone islands at the right innominate bone with additional likely bone island at the distal right femoral diaphysis. IMPRESSION: 1. Right total hip arthroplasty with no interval change in a chronic distracted nonunited avulsion fr acture of the right greater trochanter. No acute osseous abnormality. Reviewed, dictated and finalized at location A. IMPRESSION: 1. Right total hip arthroplasty with no interval change in a chronic distracted nonunited avulsion fracture of the right greater trochanter. No acute osseous abnormality.
--- NOTE | ~2023-03-27 | XR_ITS ---
EXAMINATION: XR lumbar spine 2-3V DATE: 03/27/2023 11:13 INDICATION: Low back pain. TECHNIQUE: 3 views of lumbar spine were obtained. COMPARISON: Lumbar spine radiographs 06/11/2021 FINDINGS: There is 18 degrees levoscoliosis of lumbar spine. There is severely decreased disc height from T12-L1 through L4-L5 with endplate remodeling. There is multilevel severe facet joint osteoarthr itis. There is a total right hip arthroplasty. Surgical clips in the right upper quadrant are likely from cholecystectomy. IMPRESSION: 1. Stable severe lumbar spondylosis. 2. Lumbar levoscoliosis. Reviewed, dictated and finalized at location L.
[2023-03-27 10:07] VITALS: BP 1678/93; PULSE 69; TEMP 36.6; O2SAT 98
--- NOTE | 2023-03-27 10:22 | ED.BACK ---
HPI - Back Pain/Injury General Chief Complaint: Back Pain/Injury Stated Complaint: back pain Time Seen by Provider: 03/27/23 10:13 Source: patient and family Mode of arrival: ambulatory Limitations: no limitations History of Present Illness HPI Narrative: Patient is a 77-year-old female with right lower back pain and buttocks regional pain which radiates up and down from the buttocks on the right side. No acute injury. Significantly, she had right hip and right femur repair in the past year. Prior, she also had spinal surgery in the lower back. MD elicited complaint: back pain Pertinent past history: prior back pain Onset (ago): week(s) (2) Timing: constant Severity: moderate Pain scale (0-10): 5 Similar Symptoms Previously: Yes Quality: sharp and aching Location: lumbar spine Radiation: right upper leg Exacerbating factors: movement Relieving factors: immobilization Context: while lifting, turning/twisting and bending Associated symptoms: denies other symptoms Work related injury: No Related Data Home Medications Medication Instructions Recorded Confirmed esomeprazole magnesium 40 mg 40 mg PO DAILY 01/17/21 03/27/23 capsule,delayed release levothyroxine 50 mcg capsule 50 mcg PO DAILY 01/17/21 03/27/23 (Tirosint) multivitamin 1 tablet PO DAILY 01/17/21 03/27/23 venlafaxine 75 mg capsule,extended 75 mg PO DAILY 01/17/21 03/27/23 release 24 hr calcium carbonate 500 mg calcium 500 mg PO DAILY 05/10/22 03/27/23 (1,250 mg) chewable tablet cholecalciferol (vitamin D3) 50 2,000 unit PO DAILY 05/10/22 03/27/23 mcg (2,000 unit) tablet cyanocobalamin (vitamin B-12) 2,000 mcg PO DAILY 05/10/22 03/27/23 1,000 mcg tablet (Vitamin B-12) oxybutynin chloride 5 mg tablet 5 mg PO BID 03/27/23 03/27/23 Allergies Allergy/AdvReac Type Severity Reaction Status Date / Time Sulfa (Sulfonamide Allergy Mild Unknown Verified 03/27/23 10:12 Antibiotics) Review of Systems Review of Systems: All systems reviewed & are unremarkable except as noted in HPI and below Constitutional: Constitutional: Reports no additional constitutional complaints Eyes: Eyes: Reports no additional eye complaints ENT: Reports system reviewed and no additional complaints, except as documented Cardiovascular: Cardiovascular: Reports no additional cardiovascular complaints Respiratory: Respiratory: Reports no additional respiratory complaints Gastrointestinal: Gastrointestinal: Reports no additional gastrointestinal complaints Genitourinary: Genitourinary: Reports no additional female genitourinary complaints Musculoskeletal: Musculoskeletal: Reports no additional musculoskeletal complaints Integumentary/Breasts: Skin/Breast: Reports system reviewed and no additional complaints, except as docu Neurologic: Reports system reviewed and no additional complaints, except as documented Psychiatric: Psychiatric: Reports no additional psychiatric complaints Endocrine: Endocrine: Reports no additional endocrine complaints Hematologic/Lymphatic: Hematologic/Lymphatic: Reports no additional hematologic/lymphatic complaints Allergic/Immunologic: Allergic/Immunologic: Reports no additional allergic/immunologic complaints PMFSH Past Medical History Medical History Foot drop, left GERD (gastroesophageal reflux disease) Hypothyroid Lumbar back pain with radiculopathy affecting left lower extremity Pacemaker Surgical History Surgical History S/P total right hip arthroplasty Family History Family History Father Heart disease Grandparent Heart disease Other Diabetes mellitus Family history of arthritis Family history of malignant neoplasm Social History Social History Smoking packs per day: 0.5 Smoking cigar
[2023-03-27] MEDS: ORPHENADRINE CITRATE 30 MG/ML 2 ML VIAL 60 MG IM (10:31)
[2023-03-27 10:38] LABS: Appearance Urine Clear (Clear); Bilirubin Urine Negative (Negative); Blood Urine Negative (Negative); Color Urine Light Yellow (Yellow); Glucose Urine UA Negative (Negative); Ketones Urine Negative (Negative); Leukocyte Esterase Ur Negative (Negative); Nitrate Urine Negative (Negative); Protein Urine Negative (Negative); Urobilinogen Urine 0.2 mg/dL (0.2-1.0); pH Urine 6.5 (5.0-8.0)
[2023-03-27 10:44] LABS: Add Urine Microscopic? NO
[2023-03-27 11:41] VITALS: BP 168/84; PULSE 70; O2SAT 99
[2023-03-27 11:50] VITALS: TEMP 36.2
== END 2023-03-27 11:55 | disposition home or self-care (01) ==
PROVIDERS: Emergency Provider Emergency Medicine; PCP Internal Medicine
DX: M54.50 Low back pain, unspecified (principal); E03.9 Hypothyroidism, unspecified; F17.210 Nicotine dependence, cigarettes, uncomplicated
CPT/HCPCS: 72100; 73502; 73552; 81003; 96372; 99284; J2360

== ENCOUNTER 2024-11-23 12:15 | Outpatient (CLI) | payer MEDICARE, SELFPAY ==
--- NOTE | ~2024-11-23 | XR_ITS ---
XR hip LT min 2V 11/23/2024 12:48 Indication: Arthritis Procedure: 2 views left hip Comparison: No prior studies for comparison. Findings: No fracture, subluxation or dislocation. No significant soft tissue abnormality. No foreign bodies. Impression: 1: No significant bone or joint abnormality. Reviewed, dictated and finalized at location A. Impression: 1: No significant bone or joint abnormality.
[2024-11-23 12:44] LABS: Add Urine Microscopic? NO; Appearance Urine Clear (Clear); Bilirubin Urine Negative (Negative); Blood Urine Negative (Negative); Color Urine Light Yellow (Yellow); Glucose Urine UA Negative (Negative); Ketones Urine Negative (Negative); Leukocyte Esterase Ur Negative (Negative); Nitrate Urine Negative (Negative); Protein Urine Negative (Negative); Specific Grav Ur 1.015 (1.010-1.020); Urobilinogen Urine 0.2 mg/dL (0.2-1.0)
[2024-11-23 12:46] LABS: Basophils Absolute Auto 0.07 K/mm3 (0.00-0.10); Basophils Percent Auto 1.3 % (0.0-1.0); Eosinophils Absolute Auto 0.03 K/mm3 (0.02-0.50); Eosinophils Percent Auto 0.5 % (1.0-6.0); Hematocrit 47.9 % (35.0-42.0); Hemoglobin 15.7 g/dL (11.7-13.8); Immature Granulocyte Absolute 0.01 K/mm3 (0.00-0.00); Immature Granulocyte Percent A 0.2 % (0.0-0.0); Immature Platelet Fraction Pct 2.5 % (1.0-7.0); Lymphocytes Absolute Auto 1.07 K/mm3 (1.10-4.50); Lymphocytes Percent Auto 19.6 % (18.0-42.0); Mean Corpuscular HGB Conc 32.8 g/dL (32-36); Mean Corpuscular Hemoglobin 32.9 pg (27.0-31.0); Mean Corpuscular Volume 100.4 fL (78.0-102.0); Mean Platelet Volume 10.2 fl (9.2-11.8); Neutrophils Absolute Auto 3.68 K/mm3 (1.70-7.20); Neutrophils Percent Auto 67.4 % (50.0-70.0); Platelet Count Result 115 K/mm3 (150-420); Red Blood Count 4.77 M/mm3 (4.20-5.40); Red Cell Distribution Width 13.4 % (11.6-14.4); White Blood Count 5.5 K/mm3 (4.8-10.8)
--- OUTSIDE RECORDS SUMMARY | 2024-11-23 13:16 | XMS_ITS | Clinical Summary ---
Author Organization [facility] Address [address] [place] [address] Care Team Providers Care Pressurizer Name Role Phone Watson Lopez MD Primary Care Provider Nixon Mancia MD Unavailable [phone] Allergies No known active allergies Medications calcium carbonate 1250 (500 Ca) MG chewable tablet Chew 1 tablet by mouth daily. Active esomeprazole 40 MG capsule Take 40 mg by mouth every morning before breakfast. Active multi vitamin/mineral s tablet Take 1 tablet by mouth daily. Active oxybutynin 5 MG tablet Take 5 mg by mouth daily as needed. Active venlafaxine 75 MG tablet Take 75 mg by mouth daily. Active vitamin B-12 (CYANOCOBALAMIN ) 1000 mcg tablet Take 2,000 mcg by mouth daily. Active Vitamin D3, cholecalciferol , 2000 UNIT Tab tablet Take 2,000 Units by mouth daily. Active Glucosamine 500 MG Cap Take 1,200 mcg by mouth. Active oxyCODONE-aceta minophen (PERCOCET) 5-325 MG tabletIndicatio ns:Acute Pain < 7 Day Supply Take 1-2 tablets by mouth every 4 (four) hours as needed for Pain. Indications: Acute Pain < 7 Day Supply 30 tablet 05/10/2022 Active levothyroxine (SYNTHROID) 100 MCG tablet Take 100 mcg by mouth daily. 05/19/2022 Active Active Problems Problem Noted Date Diagnosed Date Closed nondisplaced fracture of greater trochanter of right femur (CMS/HCC HHS/HCC) 05/10/2022 Closed nondisplaced fracture of greater trochanter of right femur, initial encounter ([facility]) 05/09/2022 Status post total replacement of right hip 04/23 Primary osteoarthritis of right hip 11/20/2021 PAT (paroxysmal atrial tachycardia) ([facility]) Pacemaker lead failure 02/26/2017 Pacemaker 02/26/2017 Overview (04/22/2022): Medtronic Dual Pacemaker. Dx; CHB. Gen change with new RV lead 01/21/2017, chronic atrial lead 2008. Carelink rmeote monitoring Q3 mo, office pacer checks Q1 yr. HTN (hypertension), benign 02/26/2017 Family History Relation Status Comments Father Mother Social History Tobacco Use Types Packs/Day Years Used Date Smoking Tobacco: Light Smoker Cigarettes Smokeless Tobacco: Never Alcohol Use Standard Drinks/Week Comments Yes 1.7 (1 standard drink = 0.6 oz p ure alcohol) Comments No Sex and Gender Information Value Date Recorded Sex Assigned at Not on file Legal Sex Female 5:57 PM CDT Gender Identity Not on file Sexual Orientation Not on file Last Filed Vital Signs Vital Sign Reading Time Taken Comments Blood Pressure 149/71 05/10/2022 11:45 AM CDT Pulse 72 05/10/2022 11:45 AM CDT Temperature 36.3 C (97.3 F) 05/10/2022 11:45 AM CDT Respiratory Rate 18 05/10/2022 11:45 AM CDT Oxygen Saturation 100% 05/10/2022 11:45 AM CDT Inhaled Oxygen Concentration - - Weight 70.8 kg (156 lb) 05/31/2022 10:56 AM CDT Height 165.1 cm (5' 5 ) 05/31/2022 10:56 AM CDT Body Mass Index 25.96 05/31/2022 10:56 AM CDT Plan of Treatment Health Maintenance Due Date Last Done Comments Hepatitis C 1963 DTaP, Tdap and Td Vaccines (1 - Tdap) 1966 Zoster Vaccines (1 of 2) 1997 Annual Medicare Wellness Visit 2012 Dexa Scan (General) 2012 Pneumococcal Vaccine: 65+ Years (2 of 2 - PPSV23 or PCV20) 04/10/2016 02/14/2016 RSV Immunization or 60+ Years (1 - 1-dose 75+ series) 2022 COVID-19 Vaccine ( season) 2024 02/04/2022, 06/15/2021, 12/15/2020, Additional history exists Meningococcal B Vaccine Aged Out No l onger eligible based on patient's age to complete this topic Meningococcal Vaccine Aged Out No bowen mary kate eligible based on patient's age to complete this topic RSV Immunizations Under 20 Months Aged Out No longer eligible based on patient's age to complete this topic Medical Devices Implanted Type Area Protozoology Teacher Device Identifier Shelf Expiration Date Model / Serial / Lot Cup Hip Acetabular Depuy 52mm - [id number] Implanted:Qty: 1 on 04/22/2022 by Nuno Lobo MD at [facility] Hip Components Right: Hip DEPUY [id number] 03/24/2032 [id number] / / [id number] Stem Hip Depuy Tapered - [id number] Implanted:Qty: 1 on 04/22/2022 by Nuno Lobo MD at [facility] Hip Components Right: Hip DEPUY [id number] 12/23/2031 [id number] / / [id number] Mspec Metal Femoral Head Implanted:Qty: 1 on 04/22/2022 by Nuno Lobo MD at [facility] Right: Hip DEPUY 01/22/2027 [id number] / / [id number] Altrx Polyethylene Acetabular Liner Implanted:Qty: 1 on 04/22/2022 by Nuno Lobo MD at [facility] Right: Hip DEPUY 03/24/2027 [id number] / / [id number] Insurance MEDICARE A[employer] Advance Directives * Full Code (Latest Code Status on File) Date Activated Date Inactivated Comments 05/09/2022 7:01 PM 05/10/2022 3:17 PM Care Teams Pressurizer Relationship Specialty Start Date End Date Watson Lopez MD [address] [place] [id number] PCP - General INTERNAL MEDICINE 11/20/21 Nixon Mancia MD [address] [facility] [address] [place] [address] [place] [address] CARDIOVASCULAR DISEASE 11/20/21
--- OUTSIDE RECORDS SUMMARY | 2024-11-23 13:16 | XMS_ITS ---
Care Plan - [facility] Created on: November 23, 2024 LEN YANG : 1945 Sex: Female Author Organization [facility] Address [address] [place] [address] Phone Care Team Providers Care Strand And Binder Controller Name Role Phone CESILIA ARGUETA MD Primary Care Provider [phone]
--- OUTSIDE RECORDS SUMMARY | 2024-11-23 13:16 | XMS_ITS | Clinical Summary ---
Author Organization [facility] Address [address] [place] [address] Phone Care Team Providers Care Pediatric Medical Assistant Name Role Phone Watson Lopez MD Primary Care Provider [phone] Allergies No known active allergies Medications oxybutynin chloride (DITROPAN) 5 mg tablet Take 10 mg by mouth daily. Active levothyroxine 100 mcg tablet Take 100 mcg by mouth daily. Active DULoxetine (CYMBALTA) 20 mg Capsule, Delayed Release(E.C.) Take 20 mg by mouth daily. Active aspirin (CHRISTELLE) 325 mg tablet Take 325 mg by mouth daily. Active Social History Tobacco Use Types Packs/Day Years Used Date Smoking Tobacco: Some Days Cigarettes Smokeless Tobacco: Never Comments Unknown Sex and Gender Information Value Date Recorded Sex Assigned at Not on file Legal Sex Female 12:37 PM CDT Gender Identity Not on file Sexual Orientation Not on file Last Filed Vital Signs Vital Sign Reading Time Taken Comments Blood Pressure 143/70 03/05/2019 5:07 PM CDT Pulse 92 03/05/2019 5:07 PM CDT Temperature 36.2 C (97.1 F) 03/05/2019 11:45 AM CDT Respiratory Rate 16 03/05/2019 5:07 PM CDT Oxygen Saturation 99% 03/05/2019 5:07 PM CDT Inhaled Oxygen Concentration - - Weight 72.6 kg (160 lb) 03/05/2019 11:45 AM CDT Height 165.1 cm (5' 5 ) 03/05/2019 11:45 AM CDT Body Mass Index 26.63 03/05/2019 11:45 AM CDT Plan of Treatment Health Maintenance Due Date Last Done Comments DTAP/TDAP/TD VACCINES (1 - Tdap) 1966 PNEUMOCOCCAL VACCINE 50+ YEARS (1 of 2 - PCV) 09/14/18 67 ZOSTER VACCINE (1 of 2) 1997 OSTEOPOROSIS SCREENING 2012 RSV VACCINE (60+ or ) (1 - 1-dose 75+ series) 2022 INFLUENZA VACCINE (#1) 2024 Insurance MEDICARE PART A AND B [facility] [id number] Member Subscriber Plan / Payer (Ef fective 2021-Present) Name:Prudence Watkins Relation to Subscriber:Self Name:Prudence Watkins Payer ID:[id number] (NAIC) Group ID:Not on file Type:Supplemental Address: [place] [id number] Care Teams Pediatric Medical Assistant Relationship Specialty Start Date End Date Watson Lopez MD [address] [place] [address] PCP - General Internal Medicine 02/26/19
--- OUTSIDE RECORDS SUMMARY | 2024-11-23 13:16 | XMS_ITS ---
Author Organization [facility] Address [address] [place] [address] Phone Care Team Providers Care Mortgage Loan Officer Originator Name Role Phone CESILIA ARGUETA MD Primary Care Provider [phone] Plan of Treatment No Plan of Treatment Recorded Assessments Includes: Assessments for all patient encounters No Assessments Recorded Medical Equipment - Implanted Devices Includes: Current and historical Devices No Medical Equipment Recorded Medications Administered Includes: Administered Medications in patient's chart No Administered Medications Recorded Results Includes: Results from 11/24/2023 through 11/23/2024 No Results Recorded For Specified Dates History of Present Illness History of Present Illness not supported for this document type No History of Present Illness Recorded Social History No Social History Recorded - Smoking Status Unknown Medical History Includes: Medical History in patient's chart No Medical History Recorded Family History Includes: Family History in patient's chart No Family History Recorded Review of Systems Review of Systems not supported for this document type No Review of Systems Recorded Mental Status No Mental Status Recorded Functional Status No Functional Status Recorded Physical Exam Physical Exam not supported for this document type No Physical Exam Recorded Insurance Includes: Active Insurance Policies No Insurance Coverage Recorded Guarantor Relationship Effective Dates Guarantor Ph one LEN YANG Self [id number] Clinical Notes Includes: Signed Clinical Notes starting from 09/13/2022 No Clinical Notes Recorded
--- OUTSIDE RECORDS SUMMARY | 2024-11-23 13:16 | XMS_ITS | Referral Summary ---
Author Organization [facility] Address [address] [place] [phone] Care Team Providers Care Supervisor Communications And Signals Name Role Phone Watson Lopez MD Primary Care Provider [phone] Encounters Date Type Department Care Team Description 11/17/2024 Telephone [facility] Cardiology [address] [place] [address] [place] [phone] Vito Sanders MD from Last 3 Months Allergies No known active allergies Medications oxybutynin (DITROPAN) 5 mg tablet take 1 tablet by oral route every day as needed 0 0 4 Active Additional Information Patient taking differently:5 mg2 times daily, Reported on 06/23/2023 cholecalciferol (VITAMIN D3) 2,000 unit capsule take 1 by Oral route once 0 0 4 Active calcium carbonate (CALCIUM 500) 1,250 MG (500 mg of elemental calcium) tablet take 1 by Oral route every day 0 0 4 Active cyanocobalamin (VITAMIN B-12) 2,000 mcg tablet take as directed 0 0 4 Active levothyroxine sodium (TIROSINT) 50 mcg capsule take 1 capsule by oral route every day 0 [address] (NexIUM) 40 mg capsule Take 1 capsule (40 mg total) by mouth daily before breakfast Active multivitamin capsule Take 1 capsule by mouth daily Active venlafaxine XR (EFFEXOR-XR) 75 mg 24 hr capsule 1 Active Active Problems Problem Noted Date Diagnosed Date PAT (paroxysmal atrial tachycardia) 12/03/2019 Lipid screening 09/03/2017 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 Dx; CHB. Gen change with new RV lead 01/21/2017, chronic atrial lead 2008. Carelink rmeote monitoring Q3 mo, office pacer checks Q1 yr. Dizziness 07/08/2016 Overview (11/29/2016): Dizziness Complete atrioventricular block 07/19/2015 Overview (11/29/2016): Complete heart block Tobacco dependence syndrome 01/03/2015 Overview (11/29/2016): Tobacco abuse Vertigo 01/03/2015 Overview (11/29/2016): Vertigo Social History Tobacco Use Types Packs/Day Years Used Date Smoking Tobacco: Former Smokeless Tobacco: Never Tobacco Cessation:Counseling Given: Not Answered Alcohol Use Standard Drinks/Week Comments Yes 0 (1 standard drink = 0.6 oz pur e alcohol) Comments Unknown Sex and Gender Information Value Date Recorded Sex Assigned at Not on file Legal Sex Female 6:33 AM CREDIT REPORTING CLERK Gender Identity Not on file Sexual Orientation Not on file Last Filed Vital Signs Vital Sign Reading Time Taken Comments Blood Pressure 132/80 07/09/2024 4:09 PM CREDIT REPORTING CLERK Pulse 89 07/09/2024 4:09 PM CREDIT REPORTING CLERK Temperature - - Respiratory Rate 16 06/06/2020 10:29 AM CDT Oxygen Saturation 99% 07/09/2024 4:09 PM CREDIT REPORTING CLERK Inhaled Oxygen Concentration - - Weight 69.9 kg (154 lb) 07/09/2024 4:09 PM CREDIT REPORTING CLERK Height 165.1 cm (5' 5 ) 07/09/2024 4:09 PM CREDIT REPORTING CLERK Body Mass Index 25.63 07/09/2024 4:09 PM CREDIT REPORTING CLERK Plan of Treatment Not on file Medical Devices Implanted Type Area Horse Breaker Device Identifier Shelf Expiration Date Model / Serial / Lot Pacemaker-01/21 Implanted:12/25 by Kaity Cabrales MD (Quantity not on file) Pacemaker Heart Medtronic Inc CHB / / CHRONIC ATRIAL LEAD 2008 Insurance [facility] Care Teams Supervisor Communications And Signals Relationship Specialty Start Date End Date Watson Lopez MD PCP - General 11/22/16
--- OUTSIDE RECORDS SUMMARY | 2024-11-23 13:16 | XMS_ITS | Clinical Summary ---
Author Organization [facility] Address [address] [place] [address] Care Team Providers Care Finance Accounting Internship Name Role Phone Watson Lopez MD Primary Care Provider [phone] Allergies No known active allergies Medications oxybutynin [...] Tobacco abuse Vertigo 01/03/2015 Overview (11/29/2016): Vertigo Encounters Date Type Department Care Team Description 11/17/[address] [facility] Medical Group Cardiology [address] [place] [phone] Vito Sanders MD from Last 3 Months Surgical History Surgery Date Site/Laterality Comments CARDIAC PACEMAKER PLACEMENT Cardiac pacemaker TOTAL HIP ARTHROPLASTY 03/25/2022 - 04/24/2022 Right Medical History Medical History Date Comments Hypertension Hypertension Hypothyroidism Hypothyroidism Adiposity Obesity Chronic sinusitis Foot drop, left Lumbar radiculopathy Family History Medical History Relation Name Comments Unexplained Father Relation Name Status Comments Father (Age 81) Mother Alive Social History Tobacco Use Types Packs/Day Years Used Date Smoking Tobacco: Former Smokeless Tobacco: Never Tobacco Cessation:Counseling Given: Not Answered Alcohol Use Standard Drinks/Week Comments Yes 0 (1 standard drink = 0.6 oz pur e alcohol) Comments Unknown Sex and Gender Information Value Date Recorded Sex Assigned at Not on file Legal Sex Female 6:33 AM GRADUATE INTERN Gender Identity Not on file Sexual Orientation Not on file Obstetrics History Last Filed Vital Signs Vital Sign Reading Time Taken Comments Blood Pressure 132/80 07/09/2024 4:09 PM GRADUATE INTERN Pulse 89 07/09/2024 4:09 PM GRADUATE INTERN Temperature - - Respiratory Rate 16 06/06/2020 10:29 AM CDT Oxygen Saturation 99% 07/09/2024 4:09 PM GRADUATE INTERN Inhaled Oxygen Concentration - - Weight 69.9 kg (154 lb) 07/09/2024 4:09 PM GRADUATE INTERN Height 165.1 cm (5' 5 ) 07/09/2024 4:09 PM GRADUATE INTERN Body Mass Index 25.63 07/09/2024 4:09 PM GRADUATE INTERN Plan of Treatment Health Maintenance Due Date Last Done Comments Depression Screening 1945 Fall Risk Assessment 1945 Hepatitis C Screening 1945 Osteoporosis Screening-Bone Density Scan 1945 DTaP/Tdap/Td Vaccine (1 - Tdap) 1958 Hepatitis B Screening 1965 Zoster Vaccine (1 of 2) 1997 Well Visit 65+ 2012 Pneumococcal vaccine 65+ (2 of 2 - PPSV23) 02/13/2017 02/14/2016 Influenza Vaccine (#1) 2024 06/18/2018 Medical Devices Implanted Type Area Steam And Gas Turbine Assembler Device Identifier Shelf Expiration Date Model / Serial / Lot Pacemaker-01/21 Implanted:12/25 by Kaity Cabrales MD (Quantity not on file) Pacemaker Heart Medtronic Inc CHB / / CHRONIC ATRIAL LEAD 2009 Insurance MEDICARE [facility] MEDICARE [facility] Care Teams Finance Accounting Internship Relationship Specialty Start Date End Date Watson Lopez MD PCP - General 11/22/16
--- OUTSIDE RECORDS SUMMARY | 2024-11-23 13:16 | XMS_ITS | Clinical Summary ---
Author Organization [facility] Address [address] [place] [address] Phone Care Team Providers Care Tile And Marble Setter Name Role Phone CESILIA ARGUETA MD Primary Care Provider [phone] Reason for Visit and Chief Complaint [Patient Encounter] Plan of Treatment No Plan of Treatment Recorded Assessments Includes: Assessments from this encounter No Assessments Recorded Medical Equipment - Implanted Devices Includes: Current Devices No Medical Equipment Recorded Medications Administered Includes: Administered Medications from this encounter No Administered Medications Recorded Results Includes: Results discussed during this encounter No Results Recorded For Specified Dates History of Present Illness Includes: History of Present Illness from this encounter No History of Present Illness Recorded Social History No Social History Recorded - Smoking Status Unknown Medical History Includes: Medical History addressed during this encounter No Medical History Recorded Family History Includes: Family History addressed during this encounter No Family History Recorded Review of Systems Includes: Review of Systems from this encounter No Review of Systems Recorded Mental Status Includes: Mental Status from this encounter No Mental Status Recorded Functional Status Includes: Functional Status from this encounter No Functional Status Recorded Physical Exam Includes: Physical Exam from this encounter No Physical Exam Recorded Encounters Encounter Provider Location Date Check-In Time Check-Out Time Diagnosis [Patient Encounter] SABI REILLY APRN-FPA, DEDICATED INTERMODAL TRUCK DRIVER-BC 04/15/2023 12:47PM 11:59PM Insurance Includes: Active Insurance Policies No Insurance Coverage Recorded Guarantor Relationship Effective Dates Guarantor Ph one LEN YANG Self [id number] Clinical Notes Includes: Clinical Notes from this encounter No Clinical Notes Recorded
--- OUTSIDE RECORDS SUMMARY | 2024-11-23 13:16 | XMS_ITS | Encounter Summary ---
Author Organization [facility] Address [address] [facility] [address] [place] [address] Care Team Providers Care Four Corner Stayer Machine Operator Name Role Phone Watson Lopez MD Primary Care Provider [phone] Watson Lopez MD Primary Care Provider Encounter Details Date Type Department Care Team (Late st Contact Info) Description 10/23/2016 Orders Only [facility] ProviderWei MD [address] [place] [address] Social History Tobacco Use Types Packs/Day Years Used Date Smoking Tobacco: Former Cigarettes Q uit: 08/25/2012 Alcohol Use Standard Drinks/Week Comments Yes 0 (1 standard drink = 0.6 oz pur e alcohol) Comments Unknown Sex and Gender Information Value Date Recorded Sex Assigned at Not on file Legal Sex Female 6:33 AM BEHAVIORAL CONSULTANT Gender Identity Not on file Sexual Orientation Not on file documented as of this encounter Plan of Treatment Not on file documented as of this encounter Procedures Procedure Name Priority Date/Time Associated Diagnosis Comments CARDIOLOGY REPORT 10/23/2016 documented in this encounter Results * CARDIOLOGY REPORT (10/23/2016) Anatomical Region Laterality Modality Other Narrative 10/23/2016 Ordered by an unspecified provider. Historical Provider [facility] BRANDON BROUSSARD Final Result documented in this encounter Visit Diagnoses Not on filedocumented in this encounter Care Teams Four Corner Stayer Machine Operator Relationship Specialty Start Date End Date Watosn Lopez MD PCP - General 11/22/16 Watson Lopez MD PCP - General 12/20/08 11/21/16 documented as of this encounter
--- OUTSIDE RECORDS SUMMARY | 2024-11-23 13:16 | XMS_ITS | Encounter Summary ---
Author Organization [facility] Address [address] [facility] [address] [place] [address] Care Team Providers Care Foil Operator Name Role Phone Watson Lopez MD Primary Care Provider [phone] Encounter Details Date Type Department Care Team (Late st Contact Info) Description 01/21/2017 Orders Only [facility] ProviderWei MD [address] [place] [address] Social History Tobacco Use Types Packs/Day Years Used Date Smoking Tobacco: Former Cigarettes Q uit: 08/25/2012 Alcohol Use Standard Drinks/Week Comments Yes 0 (1 standard drink = 0.6 oz pur e alcohol) Comments Unknown Sex and Gender Information Value Date Recorded Sex Assigned at Not on file Legal Sex Female 6:33 AM LANDMEN Gender Identity Not on file Sexual Orientation Not on file documented as of this encounter Plan of Treatment Not on file documented as of this encounter Procedures Procedure Name Priority Date/Time Associated Diagnosis Comments CARDIOLOGY REPORT 01/21/2017 documented in this encounter Results * CARDIOLOGY REPORT (01/21/2017) Anatomical Region Laterality Modality Other Narrative 01/21/2017 Ordered by an unspecified provider. Historical Provider [facility] BR[facility] BROUSSARD Final Result documented in this encounter Visit Diagnoses Not on filedocumented in this encounter Care Teams Foil Operator Relationship Specialty Start Date End Date Watson Lopez MD PCP - General 11/22/16 documented as of this encounter
[2024-11-23 13:40] LABS: Erythrocyte Sedimentation Rate 10 mm/hr (0-20)
[2024-11-23 13:54] LABS: Alanine Aminotransferase 38 U/L (14-59); Alkaline Phosphatase 118 U/L (46-116); Anion Gap 7 mmol/L (4-12); Aspartate Amino Transferase 32 U/L (15-37); Bilirubin,Total 0.5 mg/dL (0.00-1.00); Blood Urea Nitrogen 16 mg/dL (7-18); CRP < 0.5 mg/dL (0.0-0.9); Calcium 10.1 mg/dL (8.5-10.1); Carbon Dioxide 31 mmol/L (21-32); Chloride 102 mmol/L (98-108); Estimated Glomerular Filt Rate 51; Glucose 89 mg/dL (70-99); Osmolality Calculated 290 mOsm/kg (285-295); Potassium 4.8 mmol/L (3.5-5.1); Sodium 140 mmol/L (136-145); Thyroid Stimulating Hormone 0.92 uIU/mL (0.36-3.74); Total Protein 7.5 g/dL (6.4-8.2); Uric Acid 5.5 mg/dL (2.6-6.0)
== END 2024-11-23 12:16 | disposition home or self-care (01) ==
LOC: CHSLAB 12:17
PROVIDERS: PCP Internal Medicine; Visit Provider Internal Medicine
DX: M15.9 Polyosteoarthritis, unspecified (principal); E03.9 Hypothyroidism, unspecified; M25.552 Pain in left hip
CPT/HCPCS: 36415; 73502; 80053; 81003; 84443; 84550; 85025; 85055; 85652; 86140

== ENCOUNTER 2024-12-14 10:08 | Outpatient (RCR) | payer MEDICARE, SELFPAY ==
--- NOTE | 2024-12-14 10:54 | OPREHPOC ---
Outpatient Therapy Plan of Care This is a Multidisciplinary Plan of Care that may contain components documented by all disciplines (PT, OT, and ST.) PT Problem 1 PT Problem #1 Knowledge Deficit PT Goal 1 Goal / Goal Update independent and compliant with HEP Target Visit 6 PT Problem 2 PT Problem #2 Impaired Strength PT Goal 1 Goal / Goal Update improve bilateral hip strength to 4/5 or better overall improve bilateral knee strength to 5/5 improve bilateral ankle DF to 5/5 Target Visit 12 PT Problem 3 PT Problem #3 Impaired Balance PT Goal 1 Goal / Goal Update improve tinetti balance to 19 or better to improve from high to moderate fall risk improve 5x sit to stand to 12 seconds or less safely improve TUG to 10 seconds or less safely Target Visit 12 PT Problem 4 PT Problem #4 Impaired Functional Mobility PT Goal 1 Goal / Goal Update patient to report no falls in the last 4 weeks patient to ambulate with equal stance time and step/stride length bilaterally patient to ambulate with most appropriate AD at all times to improve her safety and decrease fall risk. Target Visit 12
--- NOTE | 2024-12-14 10:54 | PTOPEVAL1 ---
Assessment and note entered by JT File, PT Evaluation Information Assessment Status Evaluation ICD-10 Condition Codes (PT) Repeated falls R29.6,Difficulty Walking R26.2, Abnormalities of gait and mobility R26.9,Weakness R53.1 Onset 11/23/24 Subjective Information patient reports she is not too sure the exact reason the doctor sent her to PT. she reports she does have issues with her balance and walking. however, she also reports she has been having pain in the lower back and down the front of the R LE lately. she reports she does have a history of lower back surgery, R hip replacement, and pace maker placement. she reports her last fall was a couple weeks ago at home coming in her doorway. she reports her foot caught the the threshold of the door. she reports she uses a walker in the house most of the time, and usually a cane outside the home. however, she arrives to therapy without any AD today. Reported Pain Level Pain Score 3: Self Report Assessment PT Clinical Summary mrs. miller is a 79 yo woman who presents to skilled PT services for evaluation and treatment of weakness, decreased balance, and abnormal gait mechanics. she presents with deficits in bilateral LE strength, balance, and ambulation safety. she would benefit from the use of an AD at all times until her balance/ambulation are improved. continued skilled PT is indicated to help patient improve her objective/functional deficits and achieve her goals for skilled PT. Plan of Care Interventions Gait Training,Hot Pack/Cold Pack,Manual Therapy, Neuro Re-education,Patient/Caregiver Education, Therapeutic Activities,Therapeutic Exercise PT Services Indicated Yes Treatment Frequency and 3x weekly for 12 visits Duration These treatments will address the objective and functional deficits as defined above. The patient will be advanced safely and appropriately in order for the patient to progress towards his/her prior level of function. Additional exercises will be introduced and as well as a comprehensive home exercise program upon discharge, if needed, ?to ensure carryover of functional gains achieved in the clinic. This treatment plan has been reviewed and agreement upon by the patient.
--- NOTE | 2024-12-17 11:38 | PCPTNOTE ---
Patient did not show up for scheduled appointment this date.
--- NOTE | 2025-04-12 14:52 | PCPTNOTE ---
discharged due to time between sessions
== END 2025-03-14 23:59 | disposition home or self-care (01) ==
LOC: CHSPT 10:08
PROVIDERS: PCP Internal Medicine; Visit Provider Internal Medicine
DX: R26.9 Unspecified abnormalities of gait and mobility (principal); R53.1 Weakness; R29.6 Repeated falls; M19.90 Unspecified osteoarthritis, unspecified site; Z91.81 History of falling
CPT/HCPCS: 97110; 97161

== ENCOUNTER 2025-03-31 11:21 | Outpatient (CLI) | payer MEDICARE, SELFPAY ==
--- NOTE | 2025-03-31 | CONSULT_PTH ---
PATIENT: Prudence Watkins LOC: [facility]#:[id number] AGE/SX: 79/F ROOM: RE03/31/[address]: Watson Lopez MD : 1945 BED: DIS: 03/31/2025 SPEC #: [id number] RECD: 03/31/25 12:43 STATUS: CARL REChilo #: [id number] MAXI: 03/31/25 00:[address]: Watson Lopez DEPT: [facility] Consult RECD BY: Nunu Jamison [place],([facility]) Tissues: A - Peripheral Smear Procedures: Hematology Consult
--- OUTSIDE RECORDS SUMMARY | 2025-03-31 11:39 | XMS_ITS | Encounter Summary ---
Author Organization [facility] Address [address] [place] [address] Care Team Providers Care Chainstitch Seat Joiner Name Role Phone Watson Lopez MD Primary Care Provider [phone] Encounter Details Date Type Department Care Team (Late st Contact Info) Description 03/30/2025 Telephone [facility] Medical Group Cardiology [address] [address] Vito Sanders MD [address] [facility] [address] [place] [address] Social History Tobacco Use Types Packs/Day Years Used Date Smoking Tobacco: Former Smokeless Tobacco: Never Alcohol Use Standard Drinks/Week Comments Yes 0 (1 standard drink = 0.6 oz pur e alcohol) Comments Unknown Sex and Gender Information Value Date Recorded Sex Assigned at Not on file Legal Sex Female 6:33 AM FINANCIAL LEGAL ASSISTANT Gender Identity Not on file Sexual Orientation Not on file documented as of this encounter Miscellaneous Notes * Telephone Encounter - Milena Child RN - 03/30/2025 11:54 AM CDT Noted, thank you. * Telephone Encounter - Annabel Dowling - 03/30/2025 10:13 AM CDT Pt is getting an MRI done, and daughter is needing more information pt device and serial numbers. Please call back [phone]. documented in this encounter Plan of Treatment Not on file documented as of this encounter Visit Diagnoses Not on filedocumented in this encounter Care Teams Chainstitch Seat Joiner Relationship Specialty Start Date End Date Watson Lopez MD PCP - General 11/22/16 documented as of this encounter
--- OUTSIDE RECORDS SUMMARY | 2025-03-31 11:40 | XMS_ITS | Encounter Summary ---
Author Organization [facility] Address [address] [facility] [address] [place] [address] Care Team Providers Care Tennis Court Attendant Name Role Phone Watson Lopez MD Primary Care Provider Encounter Details Date Type Department Care Team (Late st Contact Info) Description 01/21/2017 Orders Only [facility] ProviderWei MD [address] [place] [address] Social History Tobacco Use Types Packs/Day Years Used Date Smoking Tobacco: Former Cigarettes Q uit: 08/25/2012 Alcohol Use Standard Drinks/Week Comments Yes 0 (1 standard drink = 0.6 oz pur e alcohol) Comments Unknown Sex and Gender Information Value Date Recorded Sex Assigned at Not on file Legal Sex Female 6:33 AM MARBLE CLEANER Gender Identity Not on file Sexual Orientation [...] on filedocumented in this encounter Care Teams Tennis Court Attendant Relationship Specialty Start Date End Date Watson Lopez MD PCP - General 11/22/16 documented as of this encounter
--- OUTSIDE RECORDS SUMMARY | 2025-03-31 11:40 | XMS_ITS | Clinical Summary ---
Author Organization [facility] Address [address] [place] [address] Care Team Providers Care Solutions Manager Name Role Phone Watson Lopez MD Primary Care Provider [phone] Allergies No known active allergies Medications oxybutynin [...] Encounters Date Type Department Care Team Description 03/30/2025 Telephone [facility] Cardiology [address] [place] [address] Vito Sanders MD 03/08/2025 Orders Only [facility] Information Management [address] [place] [address] Scanning, Provider from Last 3 Months Surgical History Surgery [...] on file Legal Sex Female 6:33 AM LOSS PREVENTION CONSULTANT Gender Identity Not on file Sexual Orientation Not on file Obstetrics History Last Filed Vital Signs Vital Sign Reading Time Taken Comments Blood Pressure 132/80 07/09/2024 4:09 PM LOSS PREVENTION CONSULTANT Pulse 89 07/09/2024 4:09 PM LOSS PREVENTION CONSULTANT Temperature - - Respiratory Rate 16 06/06/2020 10:29 AM CDT Oxygen Saturation 99% 07/09/2024 4:09 PM LOSS PREVENTION CONSULTANT Inhaled Oxygen Concentration - - Weight 69.9 kg (154 lb) 07/09/2024 4:09 PM LOSS PREVENTION CONSULTANT Height 165.1 cm (5' 5) 07/09/2024 4:09 PM LOSS PREVENTION CONSULTANT Body Mass Index 25.63 07/09/2024 4:09 PM LOSS PREVENTION CONSULTANT Plan of Treatment Health Maintenance Due Date Last Done Comments Depression Screening 1945 Fall Risk Assessment 1945 Hepatitis C Screening 1945 Osteoporosis Screening-Bone Density Scan 1945 DTaP/Tdap/Td Vaccine (1 - Tdap) 1958 Hepatitis B Screening 1965 Zoster Vaccine (1 of 2) 1997 Well Visit 65+ 2012 Pneumococcal vaccine 65+ (2 of 2 - PPSV23) 02/13/2017 02/14/2016 Influenza Vaccine (#1) 2025 06/18/2018 Medical Devices Implanted Type Area Faculty Administrator Device Identifier Shelf Expiration Date Model / Serial / Lot Pacemaker-01/21 Implanted:12/25 by Kaity Cabrales MD (Quantity not on file) Pacemaker Heart Medtronic Inc CHB / / CHRONIC ATRIAL LEAD 2009 Procedures Procedure Name Priority Date/Time Associated Diagnosis Comments SCAN - OTHER ORDERS 03/08/2025 from Last 3 Months Results * SCAN - OTHER ORDERS (03/08/2025) Provider Scanning Final Result from Last [address] [facility] MEDICARE [facility] Address: [address] [address] [facility] Care Teams Solutions Manager Relationship Specialty Start Date End Date Watson Lopez MD PCP - General 11/22/16
--- OUTSIDE RECORDS SUMMARY | 2025-03-31 11:40 | XMS_ITS | Clinical Summary ---
Author Organization [facility] Address [address] [place] [address] Phone Care Team Providers Care Television Announcer Name Role Phone Watson Lopez MD Primary Care Provider [phone] Allergies No known active allergies Medications oxybutynin [...] 11:45 AM CDT Height 165.1 cm (5' 5) 03/05/2019 11:45 AM CDT Body Mass Index 26.63 03/05/2019 11:45 AM CDT Plan of Treatment Health Maintenance Due Date Last Done Comments DTAP/TDAP/TD VACCINES (1 - Tdap) 1966 PNEUMOCOCCAL VACCINE 50+ YEARS (1 of 2 - PCV) 09/14/18 67 ZOSTER VACCINE (1 of 2) 1997 OSTEOPOROSIS SCREENING 2012 RSV VACCINE (60+ or ) (1 - 1-dose 75+ series) 2022 INFLUENZA VACCINE (#1) 2025 Insurance MEDICARE PART A AND B [facility] [id number] Member Subscriber Plan / Payer (Ef fective 2021-Present) Name:Prudence Watkins Relation to Subscriber:Self Name:Prudence Waktins Payer ID:[id number] (NAIC) Group ID:Not on file Type:Supplemental Address: [place] [id number] Care Teams Television Announcer Relationship Specialty Start Date End Date Watson Lopez MD [address] [place] [address] PCP - General Internal Medicine 02/26/19
--- OUTSIDE RECORDS SUMMARY | 2025-03-31 11:40 | XMS_ITS | Patient Health Record ---
Author Organization [facility] Address [address] [place], [place] [id number] Care Team Providers Care Chopper Operator Name Role Phone RADHA POLANCO Unavailable [phone] Watson Lopez Unavailable Unavailable Reason For Referral No Information Medications Medication SIG (Take, Route, Frequency, Duration) Notes Start Date End Date Status oxyBUTYnin Chloride 5 MG Oral Tablet ORAL oxybutynin chloride 5 MG Oral TabletOriginal Medicationoxybutynin chloride 5 MG Oral Tablet *Reorder from [facility] for eRx and Interaction Alerts* 12/13/2013 Active pantoprazole 40 MG Delayed Release Oral Tablet ORAL pantoprazole 40 MG Delayed Release Oral TabletOriginal Medicationpantoprazole 40 MG Delayed Release Oral Tablet *Reorder from [facility] for eRx and Interaction Alerts* 12/13/2013 Active nabumetone 500 MG Oral Tablet [Relafen] ORAL nabumetone 500 MG Oral Tablet [Relafen]Original Medicationnabumetone 500 MG Oral Tablet [Relafen] *Reorder from [facility] for eRx and Interaction Alerts* 12/10/2013 Active ranitidine 300 MG Oral Tablet ORAL ranitidine 300 MG Oral TabletOriginal Medicationranitidine 300 MG Oral Tablet *Reorder from [facility] for eRx and Interaction Alerts* 12/13/2013 Active Plan Of Treatment No Information Insurance Providers Payer Name Payer Address Payer Phone Subscriber Number Group Number Insured Name Patient Relationship to Insured Coverage Start Date Coverage End Date Medicare Part B [facility] [address] [place] [address] [id number] LEN YANG Self - patient is the insured [facility] ([facility]) [address] [place], [place] [id number] LEN YANG Self - patient is the insured
--- OUTSIDE RECORDS SUMMARY | 2025-03-31 11:40 | XMS_ITS | Encounter Summary ---
Author Organization [facility] Address [address] [facility] [address] [place] [address] Care Team Providers Care Dry Starch Operator Name Role Phone Watson Lopez MD Primary Care Provider [phone] Watson Lopez MD Primary Care Provider [phone] Encounter Details Date Type Department Care Team (Late st Contact Info) Description 10/23/2016 Orders Only [facility] ProviderWei MD [address] [place] [address] Social History Tobacco Use Types Packs/Day Years Used Date Smoking Tobacco: Former Cigarettes Q uit: 08/25/2012 Alcohol Use Standard Drinks/Week Comments Yes 0 (1 standard drink = 0.6 oz pur e alcohol) Comments Unknown Sex and Gender Information Value Date Recorded Sex Assigned at Not on file 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
[2025-03-31 11:54] LABS: Hematocrit 46.0 % (35.0-42.0); Hemoglobin 15.1 g/dL (11.7-13.8); Immature Platelet Fraction Pct 3.2 % (1.0-7.0); Mean Corpuscular HGB Conc 32.8 g/dL (32-36); Mean Corpuscular Hemoglobin 32.2 pg (27.0-31.0); Mean Corpuscular Volume 98.1 fL (78.0-102.0); Platelet Count Result 123 K/mm3 (150-420); Red Blood Count 4.69 M/mm3 (4.20-5.40); White Blood Count 5.0 K/mm3 (4.8-10.8)
[2025-03-31 11:55] LABS: Add Urine Microscopic? NO; Appearance Urine Clear (Clear); Glucose Urine UA Negative (Negative); Leukocyte Esterase Ur Negative (Negative); Nitrate Urine Negative (Negative); Specific Grav Ur 1.010 (1.010-1.020)
[2025-03-31 12:05] LABS: Ammonia < 9 umol/L (9-30)
[2025-03-31 12:49] LABS: Chloride 107 mmol/L (98-107); Potassium 4.3 mmol/L (3.4-5.0); Sodium 142 mmol/L (137-145)
[2025-03-31 12:50] LABS: Alanine Aminotransferase 28 U/L (6-35); Albumin Level 4.5 g/dL (3.5-5.1); Anion Gap 4 mmol/L (4-12); Aspartate Amino Transferase 53 U/L (14-36); Bilirubin,Total 0.7 mg/dL (0.2-1.3); Blood Urea Nitrogen 25 mg/dL (7-17); Calcium 10.1 mg/dL (8.4-10.2); Carbon Dioxide 31 mmol/L (22-30); Estimated Glomerular Filt Rate 51; Glucose 106 mg/dL (65-110); Osmolality Calculated 298 mOsm/kg (285-295); Total Protein 7.9 g/dL (6.3-8.2)
[2025-03-31 12:51] LABS: Alkaline Phosphatase 75 U/L (38-126)
[2025-04-06 12:08] LABS: Phosphatidylethanol (PEth) Negative (.)
== END 2025-03-31 11:22 | disposition home or self-care (01) ==
PROVIDERS: PCP Internal Medicine; Visit Provider Internal Medicine
DX: S49.92XA Unspecified injury of left shoulder and upper arm, initial encounter (principal); G31.84 Mild cognitive impairment of uncertain or unknown etiology; R94.5 Abnormal results of liver function studies; N39.0 Urinary tract infection, site not specified; Z86.59 Personal history of other mental and behavioral disorders
CPT/HCPCS: 36415; 80053; 80321; 81003; 82140; 85027; 85055; 87086; G0480

== ENCOUNTER 2025-04-06 10:13 | Outpatient (CLI) | payer MEDICARE, SELFPAY ==
--- NOTE | ~2025-04-06 | XR_ITS ---
XR shoulder LT min 2V 04/06/2025 10:35 Indication: Left shoulder pain Procedure: 4 views left shoulder Comparison: No prior studies for comparison. Findings: Mild polyarticular osteoarthritis. Normal mineralization. No acute fracture, subluxation or dislocation. Impression: 1: Mild polyarticular osteoarthritis of the left shoulder. Reviewed, dictated and finalized at location A. Impression: 1: Mild polyarticular osteoarthritis of the left shoulder.
--- OUTSIDE RECORDS SUMMARY | 2025-04-06 10:25 | XMS_ITS | Clinical Summary ---
Author Organization [facility] Address [address] [place] [address] Care Team Providers Care Water Quality Tester Name Role Phone Watson Lopez MD Primary Care Provider [phone] Allergies No known active allergies Medications oxybutynin [...] Type Department Care Team Description 03/30/[address] 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 Gender Identity Not on file Sexual Orientation Not on file Obstetrics History Last Filed Vital Signs Vital Sign Reading Time Taken Comments Blood Pressure 132/80 07/09/2024 4:09 PM TRICK RODEO RIDER Pulse 89 07/09/2024 4:09 PM TRICK RODEO RIDER Temperature - - Respiratory Rate 16 06/06/2020 10:29 AM CDT Oxygen Saturation 99% 07/09/2024 4:09 PM TRICK RODEO RIDER Inhaled Oxygen Concentration - - Weight 69.9 kg (154 lb) 07/09/2024 4:09 PM TRICK RODEO RIDER Height 165.1 cm (5' 5) 07/09/2024 4:09 PM TRICK RODEO RIDER Body Mass Index 25.63 07/09/2024 4:09 PM TRICK RODEO RIDER Plan of Treatment Health Maintenance Due Date Last Done Comments Depression Screening 1945 Fall Risk Assessment 1945 Hepatitis C Screening 1945 Osteoporosis Screening-Bone Density Scan 1945 DTaP/Tdap/Td Vaccine (1 - Tdap) 1958 Hepatitis B Screening 1965 Zoster Vaccine (1 of 2) 1997 Well Visit 65+ 2012 Pneumococcal vaccine 65+ (2 of 2 - PCV20 or PCV21) 02/14/2016 Influenza Vaccine (#1) 2025 06/18/2018 Medical Devices Implanted Type Area Insulation Technician Device Identifier Shelf Expiration Date Model / [...] Result from Last 3 Months Insurance MEDICARE [facility] MEDICARE [facility] Address: [address] [address] [facility] Care Teams Water Quality Tester Relationship Specialty Start Date End Date Watson Lopez MD PCP - General 11/22/16
--- OUTSIDE RECORDS SUMMARY | 2025-04-06 10:25 | XMS_ITS | Encounter Summary ---
Author Organization [facility] Address [address] [facility] [address] [place] [address] Care Team Providers Care Electrician Aircraft Name Role Phone Watson Lopez MD Primary Care Provider [phone] Watson Lopez MD Primary Care Provider [phone] Encounter Details Date Type Department Care Team (Late st Contact Info) Description 10/23/2016 Orders Only [facility] ProviderWei MD [address] [place] [address] Social History Tobacco Use Types Packs/Day Years Used Date Smoking Tobacco: Former Cigarettes Q uit: 08/25/2012 Alcohol Use Standard Drinks/Week Comments Yes 0 (1 standard drink = 0.6 oz pur e alcohol) Comments Unknown Sex and Gender Information Value Date Recorded Sex Assigned at Not on file 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
--- OUTSIDE RECORDS SUMMARY | 2025-04-06 10:25 | XMS_ITS | Encounter Summary ---
Author Organization [facility] Address [address] [facility] [address] [place] [address] Care Team Providers Care Drywall Sprayer Name Role Phone Watson Lopez MD Primary Care Provider [phone] Encounter Details Date Type Department Care Team (Late st Contact Info) Description 01/21/2017 Orders Only [facility] ProviderWei MD [address] [place] [address] Social History Tobacco Use Types Packs/Day Years Used Date Smoking Tobacco: Former Cigarettes Q uit: 08/25/2012 Alcohol Use Standard Drinks/Week Comments Yes 0 (1 standard drink = 0.6 oz pur e alcohol) Comments Unknown Sex and Gender Information Value Date Recorded Sex Assigned at Not on file 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
--- OUTSIDE RECORDS SUMMARY | 2025-04-06 10:25 | XMS_ITS | Clinical Summary ---
Author Organization [facility] Address [address] [place] [address] Phone Care Team Providers Care Admitting Clerk Name Role Phone Watson Lopez MD Primary Care Provider [phone] Allergies No known active allergies Medications oxybutynin [...] 2025 Insurance MEDICARE PART A AND B [facility] [id number] Member Subscriber Plan / Payer (Ef fective 2021-Present) Name:Prudence Watkins Relation to Subscriber:Self Name:Prudence Watkins Payer ID:[id number] (NAIC) Group ID:Not on file Type:Supplemental Address: [place] [id number] Care Teams Admitting Clerk Relationship Specialty Start Date End Date Watsno Lopez MD [address] [place] [address] PCP - General Internal Medicine 02/26/19
--- OUTSIDE RECORDS SUMMARY | 2025-04-06 10:25 | XMS_ITS | Patient Health Record ---
Author Organization [facility] Address [address] [place], [place] [id number] Care Team Providers Care Wheelchair Van Driver Name Role Phone RADHA POLANCO Unavailable [phone] Watson Lopez Unavailable Unavailable Reason For Referral No Information Medications Medication SIG (Take, Route, Frequency, Duration) Notes Start Date End Date Status oxyBUTYnin Chloride 5 MG Oral Tablet ORAL oxybutynin chloride 5 MG Oral TabletOriginal Medicationoxybutynin chloride 5 MG Oral Tablet *Reorder from [facility] for eRx and Interaction Alerts* 12/13/2013 Active pantoprazole 40 MG Delayed Release Oral Tablet ORAL pantoprazole 40 MG Delayed Release Oral TabletOriginal Medicationpantoprazole 40 MG Delayed Release Oral Tablet *Reorder from [facility] for eRx and Interaction Alerts* 12/13/2013 Active nabumetone 500 MG Oral Tablet [Relafen] ORAL nabumetone 500 MG Oral Tablet [Relafen]Original Medicationnabumetone 500 MG Oral Tablet [Relafen] *Reorder from [facility] for eRx and Interaction Alerts* 12/10/2013 Active ranitidine 300 MG Oral Tablet ORAL ranitidine 300 MG Oral TabletOriginal Medicationranitidine 300 MG Oral Tablet *Reorder from [facility] for eRx and Interaction Alerts* 12/13/2013 Active Plan Of Treatment No Information Insurance Providers Payer Name Payer Address Payer Phone Subscriber Number Group Number Insured Name Patient Relationship to Insured Coverage Start Date Coverage End Date Medicare Part B [facility] [address] [place] [id number] [id number] LEN YANG Self - patient is the insured [facility] ([facility]) [address] [place], [place] [id number] LEN YANG Self - patient is the insured
== END 2025-04-06 10:14 | disposition home or self-care (01) ==
LOC: CHSIMG 10:16
PROVIDERS: PCP Internal Medicine; Visit Provider Internal Medicine
DX: M25.512 Pain in left shoulder (principal); G31.84 Mild cognitive impairment of uncertain or unknown etiology; R94.5 Abnormal results of liver function studies; M19.012 Primary osteoarthritis, left shoulder
CPT/HCPCS: 73030

== ENCOUNTER 2025-04-18 09:43 | Outpatient (CLI) | payer MEDICARE, SELFPAY ==
--- NOTE | ~2025-04-18 | CT_ITS ---
EXAMINATION: CT brain wo claire, 04/18/2025 9:55 CDT HISTORY: mild cognitive impairment, constant headache/dizziness COMPARISON: Comparison 09/20/2022. Technique: Axial images obtained of the brain without contrast. One or more of the following dose reduction techniques were used: automated exposure control, adjustment of the mA and/or kV according to patient size, use of iterative reconstruction technique. Findings: No acute infarct or parenchymal hemorrhage. Moderate probable chronic periventricular ischemic changes No abnormal mass or mass effect. No midline shift. No extra-axial fluid collections. No hydrocephalus. Mastoid air cells unremarkable. Sinuses and orbits unremarkable. No acute fracture. No significant facial or scalp soft tissue swelling evident. No radiopaque foreign body is seen. Impression: 1.No acute intracranial abnormality. Reviewed, dictated and finalized at location A. Impression: 1.No acute intracranial abnormality.
--- NOTE | ~2025-04-18 | US_ITS ---
US right upper quadrant INDICATION: Abnormal liver enzymes PROCEDURE: Realtime right upper abdominal ultrasound. COMPARISON: No prior studies for comparison. FINDINGS: The pancreas is normal without focal mass or pancreatic ductal dilation. Liver echotexture is normal without focal mass or intrahepatic biliary dilatation. There is normal directional flow in the portal vein. Gallbladder is surgically absent. Common bile duct measures 4 mm. No sonographic Warner's sign. IMPRESSION: 1: Normal limited abdominal ultrasound. Reviewed, dictated and finalized at location O.
--- OUTSIDE RECORDS SUMMARY | 2025-04-18 10:31 | XMS_ITS | Clinical Summary ---
Author Organization [facility] Address [address] [place] [address] Care Team Providers Care Dairy Quality Assurance Officer Name Role Phone Watson Lopez MD Primary Care Provider [phone] Allergies No known active allergies Medications oxybutynin [...] Type Department Care Team Description 03/30/2025 Telephone [facility] Cardiology [address] [place] [address] Vito Sanders MD 03/08/2025 Orders Only [facility] Health Information Management [address] [place] [address] Scanning, Provider from Last 3 Months Surgical [...] on file Legal Sex Female 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 Gender Identity Not on file Sexual Orientation Not on file Obstetrics History Last Filed Vital Signs Vital Sign Reading Time Taken Comments Blood Pressure 132/80 07/09/2024 4:09 PM WEBSPHERE PROCESS SERVER DEVELOPER Pulse 89 07/09/2024 4:09 PM WEBSPHERE PROCESS SERVER DEVELOPER Temperature - - Respiratory Rate 16 06/06/2020 10:29 AM CDT Oxygen Saturation 99% 07/09/2024 4:09 PM WEBSPHERE PROCESS SERVER DEVELOPER Inhaled Oxygen Concentration - - Weight 69.9 kg (154 lb) 07/09/2024 4:09 PM WEBSPHERE PROCESS SERVER DEVELOPER Height 165.1 cm (5' 5) 07/09/2024 4:09 PM WEBSPHERE PROCESS SERVER DEVELOPER Body Mass Index 25.63 07/09/2024 4:09 PM WEBSPHERE PROCESS SERVER DEVELOPER Plan of Treatment Health Maintenance Due Date [...] 2025 06/18/2018 Medical Devices Implanted Type Area Home Health Care Provider Device Identifier Shelf Expiration Date Model / [...] Result from Last 3 Months Insurance MEDICARE [facility] MEDICARE [facility] Address: [address] [address] [facility] Care Teams Dairy Quality Assurance Officer Relationship Specialty Start Date End Date Watson Lopez MD PCP - General 11/22/16
--- OUTSIDE RECORDS SUMMARY | 2025-04-18 10:31 | XMS_ITS | Encounter Summary ---
Author Organization [facility] Address [address] [facility] [address] [place] [address] Care Team Providers Care Scientific Programmer Analyst Name Role Phone Watson Lopez MD Primary Care Provider [phone] Watson Lopez MD Primary Care Provider [phone] Encounter Details Date Type Department Care Team (Late st Contact Info) Description 10/23/2016 Orders Only [facility] ProviderWei MD [address] [place] [address] Social History Tobacco Use Types Packs/Day Years Used Date Smoking Tobacco: Former Cigarettes Q uit: 08/25/2012 Alcohol Use Standard Drinks/Week Comments Yes 0 (1 standard drink = 0.6 oz pur e alcohol) Comments Unknown Sex and Gender Information Value Date Recorded Sex Assigned at Not on file 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
--- OUTSIDE RECORDS SUMMARY | 2025-04-18 10:31 | XMS_ITS | Clinical Summary ---
Author Organization [facility] Address [address] [place] [address] Phone Care Team Providers Care Automobile Rental Clerk Name Role Phone Watson Lopez MD Primary Care Provider [phone] Allergies No known active allergies Medications oxybutynin [...] 2025 Insurance MEDICARE PART A AND B [facility] [id number] Member Subscriber Plan / Payer (Ef fective 2021-Present) Name:Prudence Watkins Relation to Subscriber:Self Name:Prudence Watkins Payer ID:[id number] (NAIC) Group ID:Not on file Type:Supplemental Address: [place] [id number] Care Teams Automobile Rental Clerk Relationship Specialty Start Date End Date Watson Lopez MD [address] [place] [address] PCP - General Internal Medicine 02/26/19
--- OUTSIDE RECORDS SUMMARY | 2025-04-18 10:31 | XMS_ITS | Encounter Summary ---
Author Organization [facility] Address [address] [facility] [address] [place] [address] Care Team Providers Care Leasing Representative Name Role Phone Watson Lopez MD Primary Care Provider [phone] Encounter Details Date Type Department Care Team (Late st Contact Info) Description 01/21/2017 Orders Only [facility] ProviderWei MD [address] [place] [address] Social History Tobacco Use Types Packs/Day Years Used Date Smoking Tobacco: Former Cigarettes Q uit: 08/25/2012 Alcohol Use Standard Drinks/Week Comments Yes 0 (1 standard drink = 0.6 oz pur e alcohol) Comments Unknown Sex and Gender Information Value Date Recorded Sex Assigned at Not on file 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
== END 2025-04-18 09:44 | disposition home or self-care (01) ==
LOC: CHSIMG 09:48
PROVIDERS: PCP Internal Medicine; Visit Provider Psychiatry & Neurology Neurology
DX: G31.84 Mild cognitive impairment of uncertain or unknown etiology (principal); R94.5 Abnormal results of liver function studies
CPT/HCPCS: 70450; 76705